=== PATIENT | male | born 1975 | race Caucasian/White ===

== ENCOUNTER 2019-06-27 19:57 | Emergency (ER) | payer MEDICAID ==
--- NOTE | 2019-06-27 20:08 | ERPHSYRPT ---
- History of Present Illness Time Seen by Provider: 06/27/19 20:02 Source: patient Exam Limitations: no limitations Patient Subjective Stated Complaint: shortness of air for the past 2 days. Physician History: for the past 2 days pt has had dizziness, shortness of air and impending faint with some intermittent numbness in his feet especially upon arising from a chair. pt vomited once today without blood. last BM was yesterday & wnl without blood. pt denies chest pain, abdominal pain, chills; admits to diaphoresis for years. Allergies/Adverse Reactions: No Known Drug Allergies Allergy (Unverified 06/27/19 20:17) Home Medications: Lisinopril 10 mg [Zestril 10 MG] 1 tab PO DAILY 06/27/19 [History] - Review of Systems Constitutional: Other (diaphoresis for years), No Chills Respiratory: Dyspnea (for 2 days) Cardiac: No Chest Pain Abdominal/Gastrointestinal: Nausea (today), Vomiting (once today), No Abdominal Pain Genitourinary Symptoms: No Dysuria Neurological: Dizziness, Other (impending faint and some numbness in the feet when arising from a chair for the past 2 days.) All Other Systems: Reviewed and Negative - Nursing Vital Signs Nursing Vital Signs: Initial Vital Signs Temperature 97.9 F 06/27/19 20:04 Pulse Rate 90 06/27/19 20:04 Respiratory Rate 18 06/27/19 20:04 Blood Pressure 134/78 06/27/19 20:04 O2 Sat by Pulse Oximetry 96 06/27/19 20:04 Pain Scale Pain Intensity 0 - Physical Exam General Appearance: alert Eye Exam: PERRL/EOMI Ears, Nose, Throat Exam: abnormal TM (R) (erythematous), pharyngeal erythema Neck Exam: normal inspection, No carotid bruit Respiratory Exam: wheezing (mild) Cardiovascular/Chest Exam: normal heart sounds, edema (+1 ankle edema) Abdominal/Gastrointestinal Exam: soft, normal bowel sounds Extremity Exam: normal range of motion Peripheral Pulses Exam: dorsalis-pedis (R): 1+, dorsalis-pedis (L): 1+ Neurologic Exam: alert, cooperative, normal mood/affect, No motor deficits, No sensory deficit Skin Exam: normal color, warm SpO2 Interpretation: normal - Course Nursing assessment & vital signs reviewed: Yes EKG Interpreted by Me: RATE (79), Sinus Rhythm, NORMAL AXIS - Radiology Exams Chest X-ray Interpretation: Interpreted by me, No Pneumonia - CT Exams Head CT Interpretation: Discussed w/radiologist (mild paranasal sinus dz. 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 Care 06/27/19 20:19 Active EKG-ER Only STAT Care 06/27/19 20:17 Active IV Insertion STAT Care 06/27/19 20:17 Active Pulse Oximetry (ED) STAT Care 06/27/19 20:17 Active CHEST 2 VIEWS (PA AND LAT) Stat Exams 06/27/19 20:19 Taken HEAD WITHOUT CONTRAST [CT] Stat Exams 06/27/19 20:17 Taken BLOOD CULTURE Stat Lab 06/27/19 20:39 Received CBC W DIFF Stat Lab 06/27/19 20:42 Completed CMP Stat Lab 06/27/19 20:42 Completed CULTURE,SPUTUM Stat Lab 06/27/19 21:25 Ordered D-DIMER QUANTITATION Stat Lab 06/27/19 20:42 Completed MAGNESIUM Stat Lab 06/27/19 20:42 Completed NT PRO BNP Stat Lab 06/27/19 20:42 Completed TROPONIN Q3H Lab 06/27/19 20:42 Completed TROPONIN Q3H Lab 06/27/19 23:30 Ordered TROPONIN Q3H Lab 06/28/19 02:30 Ordered TROPONIN Q3H Lab 06/28/19 05:30 Ordered TROPONIN Q3H Lab 06/28/19 08:30 Ordered UA W/RFX UR CULTURE Stat Lab 06/27/19 20:21 Completed Respiratory Therapy Assessment DAILY RT 06/27/19 20:34 Completed Medication Summary Generic Name Dose Route Start Last Admin Trade Name Freq PRN Reason Stop Dose Admin Sodium Chloride 1,000 mls @ 100 mls/hr 06/27/19 20:30 06/27/19 20:31 Sodium Chloride 0.9% 1000 Ml IV 07/27/19 20:29 100 mls/hr .Q10H ROSANNE Administration Discontinued Medications Generic Name Dose Route Start Last Admin Trade Name Freq PRN Reason Stop Dose Admin Albuterol Sulfate 2.5 mg 06/27/19 20:17 06/27/19 20:36 Proventil 2.5 Mg/3 Ml Neb IH 06/27/19 20:18 2.5 mg STAT ONE Administration Albuterol Sulfate Confirm 06/27/19 20:33 Proventil 2.5 Mg/3 Ml Neb Administered 06/27/19 20:34 Dose 2.5 mg IH .STK-MED ONE Ceftriaxone Sodium/Dextrose 1 g in 50 mls @ 100 mls/hr 06/27/19 20:17 21:36 Rocephin 1 Gm-D5w 50 Ml Bag IV 06/27/19 20:46 Infused STAT STA Infusion Azithromycin 500 mg in 250 mls @ 250 mls/hr 06/27/19 20:17 06/27/19 21:14 Zithromax 500 Mg/ 250 Ml Nacl Premix IV 06/27/19 21:16 250 mls/hr STAT STA 250 mls/hr Administration Azithromycin Confirm 06/27/19 20:23 Zithromax 500 Mg/ 250 Ml Nacl Premix Administered 06/27/19 20:24 Dose 500 mg in 250 mls @ ud IV .STK-MED ONE Ceftriaxone Sodium/Dextrose Confirm 06/27/19 20:23 Rocephin 1 Gm-D5w 50 Ml Bag Administered 06/27/19 20:24 Dose 1 g in 50 mls @ ud IV .STK-MED ONE Lab/Rad Data: Laboratory Result Diagrams 06/27/19 20:42 06/27/19 20:42 Laboratory Results 06/27/19 06/27/19 06/27/19 Range/Units 20:42 20:42 20:42 WBC (4.0-10.5) K/mm3 RBC (4.1-5.6) M/mm3 Hgb (12.5-18.0) gm/dl Hct (42-50) % MCV (78-100) fl MCH (26-32) pg MCHC (32-36) g/dl RDW (11.5-14.0) % Plt Count (150-450) K/mm3 MPV (6-9.5) fl Gran % (36.0-66.0) % Eos # (Auto) (0-0.5) Absolute Lymphs (auto) (1.0-4.6) Absolute Monos (auto) (0.0-1.3) Lymphocytes % (24.0-44.0) % Monocytes % (0.0-12.0) % Eosinophils % (0.00-5.0) % Basophils % (0.0-0.4) % Absolute Granulocytes (1.4-6.9) Basophils # (0-0.4) D-Dimer 329 (215-500) ng/mL Sodium 142 (137-145) mmol/L Potassium 4.0 (3.5-5.1) mmol/L Chloride 103 (98-107) mmol/L Carbon Dioxide 25 (22-30) mmol/L Anion Gap 18.5 H (5-15) MEQ/L BUN 12 (9-20) mg/dL Creatinine 0.92 (0.66-1.25) mg/dL Estimated GFR > 60.0 ML/MIN Glucose 97 (74-106) mg/dL Calcium 9.5 (8.4-10.2) mg/dL Magnesium 1.8 (1.6-2.3) mg/dL Total Bilirubin 0.80 (0.2-1.3) mg/dL AST 64 H (17-59) U/L ALT 70 H (0-50) U/L Alkaline Phosphatase 111 (38-126) U/L Troponin I < 0.012 (0.000-0.034) ng/mL NT-Pro-B Natriuret Pep 60.9 (0-450) pg/mL Serum Total Protein 7.8 (6.3-8.2) g/dL Albumin 4.3 (3.5-5.0) g/dL Urine Color (YELLOW) Urine Appearance (CLEAR) Urine pH (5-6) Ur Specific [place] (1.005-1.025) Urine Protein (Negative) Urine Ketones (NEGATIVE) Urine Blood (0-5) Hernán/ul Urine Nitrite (NEGATIVE) Urine Bilirubin (NEGATIVE) Urine Urobilinogen (0-1) mg/dL Ur Leukocyte Esterase (NEGATIVE) Urine WBC (Auto) (0-5) /HPF Urine RBC (Auto) (0-2) /HPF U Epithel Cells (Auto) (FEW) /HPF Urine Bacteria (Auto) (NEGATIVE) /HPF Urine Mucus (Auto) (NEGATIVE) /HPF Urine Culture Reflexed (NO) Urine Glucose (NEGATIVE) mg/dL 06/27/19 06/27/19 Range/Units 20:42 20:21 WBC 14.4 H (4.0-10.5) K/mm3 RBC 5.81 H (4.1-5.6) M/mm3 Hgb 18.6 H (12.5-18.0) gm/dl Hct 53.5 H (42-50) % MCV 92.1 (78-100) fl MCH 32.0 (26-32) pg MCHC 34.8 (32-36) g/dl RDW 16.0 H (11.5-14.0) % Plt Count 302 (150-450) K/mm3 MPV 10.7 H (6-9.5) fl Gran % 52.7 (36.0-66.0) % Eos # (Auto) 0.36 (0-0.5) Absolute Lymphs (auto) 4.82 H (1.0-4.6) Absolute Monos (auto) 1.53 H (0.0-1.3) Lymphocytes % 33.5 (24.0-44.0) % Monocytes % 10.6 (0.0-12.0) % Eosinophils % 2.5 (0.00-5.0) % Basophils % 0.7 (0.0-0.4) % Absolute Granulocytes 7.59 H (1.4-6.9) Basophils # 0.10 (0-0.4) D-Dimer (215-500) ng/mL Sodium (137-145) mmol/L Potassium (3.5-5.1) mmol/L Chloride (98-107) mmol/L Carbon Dioxide (22-30) mmol/L Anion Gap (5-15) MEQ/L BUN (9-20) mg/dL Creatinine (0.66-1.25) mg/dL Estimated GFR ML/MIN Glucose (74-106) mg/dL Calcium (8.4-10.2) mg/dL Magnesium (1.6-2.3) mg/dL Total Bilirubin (0.2-1.3) mg/dL AST (17-59) U/L ALT (0-50) U/L Alkaline Phosphatase (38-126) U/L Troponin I (0.000-0.034) ng/mL NT-Pro-B Natriuret Pep (0-450) pg/mL Serum Total Protein (6.3-8.2) g/dL Albumin (3.5-5.0) g/dL Urine Color YELLOW (YELLOW) Urine Appearance CLEAR (CLEAR) Urine pH 6.0 (5-6) Ur Specific [place] 1.006 (1.005-1.025) Urine Protein NEGATIVE (Negative) Urine Ketones NEGATIVE (NEGATIVE) Urine Blood NEGATIVE (0-5) Hernán/ul Urine Nitrite NEGATIVE (NEGATIVE) Urine Bilirubin NEGATIVE (NEGATIVE) Urine Urobilinogen NEGATIVE (0-1) mg/dL Ur Leukocyte Esterase NEGATIVE (NEGATIVE) Urine WBC (Auto) NONE (0-5) /HPF Urine RBC (Auto) 0-2 (0-2) /HPF U Epithel Cells (Auto) NONE (FEW) /HPF Urine Bacteria (Auto) NONE (NEGATIVE) /HPF Urine Mucus (Auto) SLIGHT (NEGATIVE) /HPF Urine Culture Reflexed NO (NO) Urine Glucose NEGATIVE (NEGATIVE) mg/dL - Departure Departure Disposition: Home Clinical Impression: Sinusitis, Right otitis media, Pharyngitis, Bronchitis, Dizziness Condition: Fair Critical Care Time: No Referrals: MORENO MORRIS NP [Primary Care Provider] - Instructions: Dizziness, Nonvertigo, (DC) Prescriptions: Azithromycin 250 mg [Zithromax 250 MG TABLET] 250 mg PO ZPACK #6 tablet
[2019-06-27] MEDS ORDERED: Sodium Chloride 0.9% 1000 ML 1,000 ML ONE (20:23)
[2019-06-27] MEDS ORDERED: ROCEPHIN 1 Gm-D5w 50 ml Bag** 1 G/50 ML IVPB IV ONE (20:23)
[2019-06-27] MEDS ORDERED: Zithromax 500 MG/ 250 ML NaCl Premix 500 MG/250 ML IVPB IV ONE (20:23)
[2019-06-27] MEDS: Sodium Chloride 0.9% 1000 ML 1,000 ML IV SCH (20:31)
[2019-06-27] MEDS ORDERED: PROVENTIL 2.5 MG/3 ML NEB IH ONE (20:33)
[2019-06-27] MEDS: PROVENTIL 2.5 MG/3 ML NEB IH ONE (20:36)
[2019-06-27 20:48] LABS: BASOPHIL % 0.7 % (0.0-0.4); Eosinophil % 2.5 % (0.00-5.0); Eosinophil (Absolute #) 0.36 (0-0.5); Granulocyte Absolute (ANC) 7.59 (1.4-6.9); Granulocytes % 52.7 % (36.0-66.0); Hematocrit 53.5 % (42-50); Hemoglobin 18.6 gm/dl (12.5-18.0); Lymphocyte (Absolute #) 4.82 (1.0-4.6); Lymphocytes % 33.5 % (24.0-44.0); Mean Cell Volume 92.1 fl (78-100); Mean Corpuscular Hgb Concent. 34.8 g/dl (32-36); Mean Platelet Volume 10.7 fl (6-9.5); Monocyte (Absolute #) 1.53 (0.0-1.3); Monocytes % 10.6 % (0.0-12.0); Platelet Count 302 K/mm3 (150-450); Red Blood Count 5.81 M/mm3 (4.1-5.6); White Blood Count 14.4 K/mm3 (4.0-10.5)
[2019-06-27 20:59] LABS: Appearance CLEAR (CLEAR); Bilirubin NEGATIVE (NEGATIVE); Blood NEGATIVE Ery/ul (0-5); Glucose NEGATIVE (NEGATIVE); Ketones NEGATIVE (NEGATIVE); Leukocyte Esterase NEGATIVE (NEGATIVE); Mucus SLIGHT /HPF (NEGATIVE); Nitrite NEGATIVE (NEGATIVE); Protein,Urine Dip NEGATIVE (Negative); RBC 0-2 /HPF (0-2); Specific Gravity 1.006 (1.005-1.025); Urobilinogen NEGATIVE mg/dL (0-1)
[2019-06-27 21:01] LABS: ALBUMIN 4.3 g/dL (3.5-5.0); ALKALINE PHOSPHATASE 111 U/L (38-126); ANION GAP 18.5 MEQ/L (5-15); BLOOD UREA NITROGEN 12 mg/dL (9-20); CHLORIDE 103 mmol/L (98-107); Calcium 9.5 mg/dL (8.4-10.2); Carbon Dioxide 25 mmol/L (22-30); Creatinine 1 0.92 mg/dL (0.66-1.25); Glucose 97 mg/dL (74-106); MAGNESIUM 1.8 mg/dL (1.6-2.3); NT PRO BNP 60.9 pg/mL (0-450); SGOT/AST 64 U/L (17-59); SGPT/ALT 70 U/L (0-50); SODIUM 142 mmol/L (137-145); Total Protein 7.8 g/dL (6.3-8.2)
[2019-06-27] MEDS: ROCEPHIN 1 Gm-D5w 50 ml Bag** 1 G/50 ML IVPB IV STA (21:07)
[2019-06-27] MEDS: Zithromax 500 MG/ 250 ML NaCl Premix 500 MG/250 ML IVPB IV STA (21:14)
[2019-06-27 22:49] VITALS: BP 133/96; O2SAT 97
[2019-06-27 23:09] VITALS: PULSE 83
[2019-06-28 04:11] LABS: Slide Review 1 YES
--- NOTE | 2019-06-28 07:46 | XRAY ---
Indication: Near syncope. Dyspnea. Feet numbness. Multiple contiguous axial images obtained through the head without contrast. Comparison: None Normal appearing brain parenchyma, ventricles, and bony calvarium. Mild mucosal thickening of both ethmoid sinuses and lesser degree remaining paranasal sinuses without fluid leveling. Mastoid air cells are clear. Impression: Pansinusitis. No acute intracranial abnormalities. CTDI 67.80
--- NOTE | 2019-06-28 07:49 | XRAY ---
Indication: Dyspnea. Diaphoresis. Comparison: None PA/lateral chest hyperinflated with both costophrenic angles not completely included in the [id number]. No focal infiltrate, consolidation, or large effusion. Heart and mediastinal structures within normal limits. Bony thorax intact. Impression: Nonacute hyperinflated limited chest.
== END 2019-06-27 23:04 | disposition home or self-care (01) ==
LOC: ED 19:57
DX: J32.9 Chronic sinusitis, unspecified (principal); H66.91 Otitis media, unspecified, right ear; J02.9 Acute pharyngitis, unspecified; J40 Bronchitis, not specified as acute or chronic; R42 Dizziness and giddiness
CPT/HCPCS: 36000; 36415; 70450; 71046; 80053; 81001; 83735; 83880; 84484; 85025; 85379; 87040; 93005; 93041; 94640; 94760; 96360; 96365; 96368; 99284; J0456; J0696; J7609; A9270-GY

== ENCOUNTER 2019-09-27 11:49 | Emergency (ER) | payer MEDICAID, OTHER ==
[2019-09-27 12:10] VITALS: BP 103/63; PULSE 76; O2SAT 96
[2019-09-27] MEDS ORDERED: TETRACAINE 0.5% STERI-UNIT SOL OP ONE (12:12)
[2019-09-27] MEDS ORDERED: Fluor-I-Strip/Ful-Flo OP ONE ×2 (12:12→12:32)
[2019-09-27] MEDS ORDERED: Eye-Stream Solution ONE (12:13)
[2019-09-27] MEDS ORDERED: Eye-Stream Solution OP ONE (12:33)
[2019-09-27] MEDS ORDERED: Visine OPHTHALMIC 15 ML OP ONE (12:34)
[2019-09-27] MEDS ORDERED: TETRACAINE 0.5% STERI-UNIT SOL OP STA (12:36)
--- NOTE | 2019-09-27 12:39 | ERPHSYRPT ---
- History of Present Illness Time Seen by Provider: 09/27/19 11:55 Source: patient Exam Limitations: no limitations Patient Subjective Stated Complaint: Pt states "I got something in my left eye. It is irritating me. It has been there for about a month. I saw my DrChase and he gave me drops and said it was an infection but I think that is bull." Triage Nursing Assessment: Pt presented alert and oriented X 3, skin pwd Pt ambualtes with an upright steady gait, able to speak in clear full sentences. Pt in no apparet respiratory distress. PT left eye red. Physician History: foreign body sensation left eye times one month Timing/Duration: week(s) (43) Location: left eye Severity: mild Apparent Injury: no Associated Symptoms: burning, foreign body sensation Chemical Exposure: No Trauma: No Welding Arc/Tanning Bed Exposure: No Allergies/Adverse Reactions: No Known Drug Allergies Allergy (Verified 09/27/19 12:10) Home Medications: Lisinopril 10 mg [Zestril 10 MG] 1 tab PO DAILY 06/27/19 [History] Alprazolam 1 mg [Xanax 1 mg] 1 mg PO TID PRN 09/10/19 [History] Benztropine Mesylate 1 mg PO HS 09/10/19 [History] Carvedilol [Coreg] 25 mg PO BID 09/10/19 [History] Celecoxib 100 mg [celeBREX 100 MG] 100 mg PO DAILY 09/10/19 [History] Haloperidol 5 mg [Haldol 5 MG] 5 mg PO BID 09/10/19 [History] Metformin HCl 500 mg [Glucophage 500 MG] 500 mg PO BID 09/10/19 [History] Quetiapine Fumarate 100 mg [Seroquel 100 MG] 100 mg PO HS 09/10/19 [ History] Sertraline HCl [Zoloft] 100 mg PO DAILY 09/10/19 [History] Simvastatin 20Mg [Zocor 20Mg] 20 mg PO DAILY 09/10/19 [History] Hx Tetanus, Diphtheria Vaccination/Date Given: Yes Hx Influenza Vaccination/Date Given: No Hx Pneumococcal Vaccination/Date Given: No Immunizations Up to Date: Yes - Review of Systems Constitutional: No Fever, No Chills Eyes: Foreign Body Sensation Ears, Nose, & Throat: No Symptoms Respiratory: No Cough, No Dyspnea Cardiac: No Chest Pain, No Edema, No Syncope Abdominal/Gastrointestinal: No Abdominal Pain, No Nausea, No Vomiting, No Diarrhea Genitourinary Symptoms: No Dysuria Musculoskeletal: No Back Pain, No Neck Pain Skin: No Rash Neurological: No Dizziness, No Focal Weakness, No Sensory Changes Psychological: No Symptoms Endocrine: No Symptoms All Other Systems: Reviewed and Negative - Past Medical History Pertinent Past Medical History: Yes Neurological History: No Pertinent History ENT History: No Pertinent History Cardiac History: Hypertension Respiratory History: Bronchitis, Pneumonia Endocrine Medical History: Diabetes Type II Musculoskeletal History: Rheumatoid Arthritis GI Medical History: No Pertinent History History: No Pertinent History Psycho-Social History: Bipolar, Depression, Other Male Reproductive Disorders: No Pertinent History Other Medical History: Schizo-affective disorder, bipolar - Past Surgical History Past Surgical History: Yes Neuro Surgical History: No Pertinent History Cardiac: No Pertinent History Respiratory: No Pertinent History Gastrointestinal: No Pertinent History Genitourinary: No Pertinent History Musculoskeletal: Orthopedic Surgery Male Surgical History: No Pertinent History Other Surgical History: Right knee surgery and neck surgery - Social History Smoking Status: Current every day smoker How long have you smoked: years Exposure to second hand smoke: Yes Drug Use: marijuana Patient Lives Alone: Yes - Nursing Vital Signs Nursing Vital Signs: Initial Vital Signs Temperature 98.0 F 09/27/19 12:05 Pulse Rate 76 09/27/19 12:05 Respiratory Rate 20 09/27/19 12:05 Blood Pressure 103/63 09/27/19 12:05 O2 Sat by Pulse Oximetry 96 09/27/19 12:05 Pain Scale Pain Intensity 5 - Physical Exam General Appearance: mild distress Vision Acuity Degree Evaluation Phase: Uncorrected Vision Acuity Right Eye: 20/50 Vision Acuity Left Eye: 20/50 Eye Exam: left eye: conjunctival inflammation, corneal abrasion, eyelid inflammation, bilateral eye: normal inspection, PERRL, EOMI Ears, Nose, Throat Exam: normal ENT inspection Neck Exam: normal inspection Respiratory Exam: normal breath sounds Cardiovascular Exam: regular rate/rhythm Extremity Exam: normal inspection Neurologic: 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 Skin Exam: normal color, warm, dry SpO2: 96 Ordered Tests: Medication Summary Discontinued Medications Generic Name Dose Route Start Last Admin Trade Name Freq PRN Reason Stop Dose Admin Eye Irrigation Solution Confirm 09/27/19 12:13 Eye-Stream Solution Administered 09/27/19 12:14 Dose 30 ml .ROUTE .STK-MED ONE Eye Irrigation Solution 15 ml 09/27/19 12:33 Eye-Stream Solution OP 09/27/19 12:34 STAT ONE Fluorescein Sodium Confirm 09/27/19 12:12 [id number]/Ful-Wyatt Administered 09/27/19 12:13 Dose 1 mg OP .STK-MED ONE Fluorescein Sodium 1 mg 09/27/19 12:32 [id number]/Ful-Wyatt OP 09/27/19 12:33 STAT ONE Tetracaine HCl Confirm 09/27/19 12:12 Tetracaine 0.5% Steri-Unit La Administered 09/27/19 12:13 Dose 4 ml OP .STK-MED ONE - Progress Progress: unchanged - Departure Departure Disposition: Home Clinical Impression: Corneal abrasion, left Condition: Stable Critical Care Time: No Referrals: MORENO MORRIS NP [Primary Care Provider] - Instructions: Corneal Abrasion (DC) Additional Instructions: corneal abrasion Prescriptions: Tobramycin/Dexamethasone [Tobradex Eye Drops] 10 ml OP Q4H #2 drops.susp
== END 2019-09-27 12:52 | disposition home or self-care (01) ==
LOC: ED 11:49
DX: T15.02XA Foreign body in cornea, left eye, initial encounter (principal); X58.XXXA Exposure to other specified factors, initial encounter; Y93.9 Activity, unspecified; Y92.9 Unspecified place or not applicable; E11.9 Type 2 diabetes mellitus without complications; Z79.4 Long term (current) use of insulin; I10 Essential (primary) hypertension; M06.9 Rheumatoid arthritis, unspecified
CPT/HCPCS: 99283; A9270-GY

== ENCOUNTER 2019-10-03 15:48 | Emergency (ER) | payer OTHER ==
[2019-10-03] MEDS ORDERED: Sodium Chloride 0.9% 1000 ML 1,000 ML IV STA (16:17)
--- NOTE | 2019-10-03 16:17 | ERPHSYRPT ---
- History of Present Illness Time Seen by Provider: 10/03/19 15:59 Source: patient Exam Limitations: no limitations Patient Subjective Stated Complaint: pt here for syncopal episode at home early this morning, he states for over a month now he has been getting dizzy spells, [facility] Triage Nursing Assessment: pt alert, resp easy, skin w/d/p. chest wheezes, abd soft,large and distened which is normal for him, pt co pain to back from the fall today and a headache, edema to lower legs Physician History: pt. here for a syncopal episode this am followed by a fall on his right side and hitting his head with ? LOC, denies nausea/vomiting/seizure like activity, not witnessed - pt. reports that he ahs chronic medical problems like tingling of arms and legs, dizziness, weakness x 2 mo - denies headache/chest pain/sob Witnessed: unwitnessed Prior Episodes: single episode today Timing/Duration: today, improved Precipitating Factors: none Context: activity Loss of Consciousness: brief (seconds) Charcter of event(s): almost passed out Allergies/Adverse Reactions: No Known Drug Allergies Allergy (Verified 10/03/19 16:16) Home Medications: Lisinopril 10 mg [Zestril 10 MG] 1 tab PO DAILY 06/27/19 [History] Alprazolam 1 mg [Xanax 1 mg] 1 mg PO TID PRN 09/10/19 [History] Benztropine Mesylate 1 mg PO HS 09/10/19 [History] Carvedilol [Coreg] 25 mg PO BID 09/10/19 [History] Celecoxib 100 mg [celeBREX 100 MG] 100 mg PO DAILY 09/10/19 [History] Haloperidol 5 mg [Haldol 5 MG] 5 mg PO BID 09/10/19 [History] Metformin HCl 500 mg [Glucophage 500 MG] 500 mg PO BID 09/10/19 [History] Quetiapine Fumarate 100 mg [Seroquel 100 MG] 100 mg PO HS 09/10/19 [ History] Sertraline HCl [Zoloft] 100 mg PO DAILY 09/10/19 [History] Simvastatin 20Mg [Zocor 20Mg] 20 mg PO DAILY 09/10/19 [History] Hx Tetanus, Diphtheria Vaccination/Date Given: Yes Hx Influenza Vaccination/Date Given: No Hx Pneumococcal Vaccination/Date Given: No Immunizations Up to Date: Yes - Past Medical History Pertinent Past Medical History: Yes Neurological History: No Pertinent History ENT History: No Pertinent History Cardiac History: Hypertension Respiratory History: Bronchitis, Pneumonia Endocrine Medical History: Diabetes Type II Musculoskeletal History: Rheumatoid Arthritis GI Medical History: No Pertinent History History: No Pertinent History Psycho-Social History: Bipolar, Depression, Other Male Reproductive Disorders: No Pertinent History Other Medical History: Schizo-affective disorder, bipolar - Past Surgical History Past Surgical History: Yes Neuro Surgical History: No Pertinent History Cardiac: No Pertinent History Respiratory: No Pertinent History Gastrointestinal: No Pertinent History Genitourinary: No Pertinent History Musculoskeletal: Orthopedic Surgery Male Surgical History: No Pertinent History Other Surgical History: Right knee surgery and neck surgery - Social History Smoking Status: Current every day smoker How long have you smoked: years Exposure to second hand smoke: Yes Drug Use: marijuana Patient Lives Alone: Yes - Review of Systems Constitutional: No Fever, No Chills Eyes: No Symptoms Ears, Nose, & Throat: No Symptoms Respiratory: No Cough, No Dyspnea Cardiac: No Chest Pain, No Edema, No Syncope Abdominal/Gastrointestinal: No Abdominal Pain, No Nausea, No Vomiting, No Diarrhea Genitourinary Symptoms: No Dysuria Musculoskeletal: No Back Pain, No Neck Pain Skin: No Rash Neurological: Dizziness, No Focal Weakness, No Sensory Changes Psychological: No Symptoms Endocrine: No Symptoms Hematologic/Lymphatic: No Symptoms Immunological/Allergic: No Symptoms All Other Systems: Reviewed and Negative Physical Exam - Nursing Vital Signs Nursing Vital Signs: Initial Vital Signs Temperature 97.9 F 10/03/19 16:04 Pulse Rate 78 10/03/19 16:04 Respiratory Rate 18 10/03/19 16:04 Blood Pressure 130/83 10/03/19 16:04 O2 Sat by Pulse Oximetry 96 10/03/19 16:04 Pain Scale Pain Intensity 0 - [place] Coma Scale Best Eye Response (Janet): (4) open spontaneously Best Verbal Response (Janet): (5) oriented Best Motor Response (Janet): (6) obeys commands Janet Total: 15 - Physical Exam General Appearance: no apparent distress Eye Exam: bilateral eye: normal inspection, PERRL, EOMI Ears, Nose, Throat Exam: normal ENT inspection Neck Exam: normal inspection, non-tender, supple, full range of motion Respiratory: normal breath sounds, lungs clear, airway intact, No chest tenderness, No respiratory distress Cardiovascular: regular rate/rhythm, normal heart sounds, normal peripheral pulses Gastrointestinal: soft, normal bowel sounds Rectal Exam: deferred Back Exam: normal inspection, normal range of motion Extremity Exam: normal inspection, normal range of motion Peripheral Pulses: carotid (R): 4+, carotid (L): 4+, femoral (R): 4+, femoral (L ): 4+, dorsalis-pedis (R): 4+, dorsalis-pedis (L): 4+ 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, 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, 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 Exam: normal hearing, normal speech, PERRL Coordination/Gait: normal finger to nose, normal gait, normal cerebellar function, negative Romberg's sign Motor/Sensory: no motor deficit, no sensory deficit, no pronator drift Skin Exam: normal color, warm, dry SpO2 Interpretation: normal SpO2: 96 O2 Delivery: Room Air Ordered Tests: Active Orders 24 hr Category Date Time Status Accucheck STAT Care 10/03/19 16:17 Active IV Insertion STAT Care 10/03/19 16:17 Active Orthostatic Vital Signs STAT Care 10/03/19 16:17 Active HEAD WITHOUT CONTRAST [CT] Stat Exams 10/03/19 16:18 Completed LUMBAR LIMITED (2 OR 3 VIEWS) Stat Exams 10/03/19 16:48 Completed CBC W DIFF Stat Lab 10/03/19 16:04 Completed CMP Stat Lab 10/03/19 16:04 Completed Manual Differential NC Stat Lab 10/03/19 16:04 Completed TROPONIN Q3H Lab 10/03/19 16:04 Completed Urine Triage Profile Stat Lab 10/03/19 16:04 Completed Medication Summary Discontinued Medications Generic Name Dose Route Start Last Admin Trade Name Freq PRN Reason Stop Dose Admin Sodium Chloride 1,000 mls @ 999 mls/hr 10/03/19 16:17 10/03/19 17:54 Sodium Chloride 0.9% 1000 Ml IV 10/03/19 17:17 Infused .Q1H1M STA Infusion Sodium Chloride Confirm 10/03/19 16:46 Sodium Chloride 0.9% 1000 Ml Administered 10/03/19 16:47 Dose 1,000 mls @ ud .ROUTE .STK-MED ONE Ketorolac Tromethamine 30 mg 10/03/19 16:21 10/03/19 16:49 Toradol 30 Mg Injection IV 10/03/19 16:22 30 mg STAT ONE Administration Ketorolac Tromethamine Confirm 10/03/19 16:46 Toradol 30 Mg Injection Administered 10/03/19 16:47 Dose 30 mg .ROUTE .STK-MED ONE Lab/Rad Data: Laboratory Result Diagrams 10/03/19 16:04 10/03/19 16:04 Laboratory Results 10/03/19 10/03/19 10/03/19 Range/Units 16:04 16:04 16:04 WBC (4.0-10.5) K/mm3 RBC (4.1-5.6) M/mm3 Hgb (12.5-18.0) gm/dl Hct (42-50) % MCV (78-100) fl MCH (26-32) pg MCHC (32-36) g/dl RDW (11.5-14.0) % Plt Count (150-450) K/mm3 MPV (6-9.5) fl Sodium 142 (137-145) mmol/L Potassium 4.1 (3.5-5.1) mmol/L Chloride 106 (98-107) mmol/L Carbon Dioxide 26 (22-30) mmol/L Anion Gap 13.8 (5-15) MEQ/L BUN 14 (9-20) mg/dL Creatinine 0.67 (0.66-1.25) mg/dL Estimated GFR > 60.0 ML/MIN Glucose 86 (74-106) mg/dL Calcium 9.3 (8.4-10.2) mg/dL Total Bilirubin 0.40 (0.2-1.3) mg/dL AST 56 (17-59) U/L ALT 88 H (0-50) U/L Alkaline Phosphatase 95 (38-126) U/L Troponin I < 0.012 (0.000-0.034) ng/mL Serum Total Protein 7.6 (6.3-8.2) g/dL Albumin 4.2 (3.5-5.0) g/dL Urine Opiates Level NEGATIVE (NEGATIVE) Ur Methadone NEGATIVE (NEGATIVE) Urine Barbiturates NEGATIVE (NEGATIVE) Ur Phencyclidine (PCP) NEGATIVE (NEGATIVE) Urine Amphetamine NEGATIVE (NEGATIVE) U Benzodiazepine Level POSITIVE (NEGATIVE) Urine Cocaine NEGATIVE (NEGATIVE) Urine Marijuana (THC) POSITIVE (NEGATIVE) 10/03/19 Range/Units 16:04 WBC 13.9 H (4.0-10.5) K/mm3 RBC 5.10 (4.1-5.6) M/mm3 Hgb 16.2 (12.5-18.0) gm/dl Hct 47.4 (42-50) % MCV 92.9 (78-100) fl MCH 31.8 (26-32) pg MCHC 34.2 (32-36) g/dl RDW 13.9 (11.5-14.0) % Plt Count 233 (150-450) K/mm3 MPV 11.4 H (6-9.5) fl Sodium (137-145) mmol/L Potassium (3.5-5.1) mmol/L Chloride (98-107) mmol/L Carbon Dioxide (22-30) mmol/L Anion Gap (5-15) MEQ/L BUN (9-20) mg/dL Creatinine (0.66-1.25) mg/dL Estimated GFR ML/MIN Glucose (74-106) mg/dL Calcium (8.4-10.2) mg/dL Total Bilirubin (0.2-1.3) mg/dL AST (17-59) U/L ALT (0-50) U/L Alkaline Phosphatase (38-126) U/L Troponin I (0.000-0.034) ng/mL Serum Total Protein (6.3-8.2) g/dL Albumin (3.5-5.0) g/dL Urine Opiates Level (NEGATIVE) Ur Methadone (NEGATIVE) Urine Barbiturates (NEGATIVE) Ur Phencyclidine (PCP) (NEGATIVE) Urine Amphetamine (NEGATIVE) U Benzodiazepine Level (NEGATIVE) Urine Cocaine (NEGATIVE) Urine Marijuana (THC) (NEGATIVE) - Progress Progress: improved Progress Note: 10/03/19 20:54 pt. seen and examined IVF given CBC showed wbc ct 13.9- no comparison/source of infection/symptoms cmp, torpomnins WNL Lumbar spine XR and Ct head - WNL UDS + marijuana and benzos discussed with pt- he wants to go home as all of his other symptoms are chronis , states he feels better after IVF - Departure Departure Disposition: Home Clinical Impression: Syncope, Dizziness and giddiness, Low back pain Condition: Stable Critical Care Time: No Referrals: MORENO MORRIS, LOGISTICS OFFICER [Primary Care Provider] - Instructions: Syncope (Fainting) Additional Instructions: Discharge/Care Plan MIRIAM HUERTAS was seen on 10/03/19 in the Emergency Room. The patient was counseled regarding Diagnosis,Lab results, Imaging studies, need for follow up and when to return to the Emergency Room. Prescriptions given: Discharge Note I have spoken with the patient and/or caregivers. I have explained the patient' s condition, diagnosis and treatment plan based on the information available to me at this time. I have answered the patient's and/or caregiver's questions and addressed any concerns. The patient and/or caregivers have as good understanding of the patient's diagnosis, condition and treatment plan as can be expected at this point. The vital signs have been stable. The patient's condition is stable and appropriate for discharge from the emergency department. The patient will pursue further outpatient evaluation with the primary care physician or other designated or consulting physician as outlined in the discharge instructions. The patient and/or caregivers are agreeable to this plan of care and follow-up instructions have been explained in detail. The patient and/or caregivers have received these instruction. The patient/and or caregivers are aware that any significant change in condition or worsening of symptoms should prompt an immediate return to this or the closest emergency department or call 911.
[2019-10-03] MEDS ORDERED: TORAdol 30 mg Injection IV ONE (16:21)
[2019-10-03] MEDS ORDERED: TORAdol 30 mg Injection ONE (16:46)
[2019-10-03] MEDS ORDERED: Sodium Chloride 0.9% 1000 ML 1,000 ML ONE (16:46)
--- NOTE | 2019-10-03 16:50 | XRAY ---
Indication: Dizziness and syncope. Right head injury following fall. Multiple contiguous axial images obtained through the head without contrast. Comparison: June 27, 2019. Again normal appearing brain parenchyma, ventricles, and bony calvarium. Minimal mucosal thickening right maxillary and left sphenoid sinuses. Mastoid air cells are clear. Impression: Minimal paranasal sinus disease. No new or acute intracranial abnormalities. CTDI 43.80
--- NOTE | 2019-10-03 16:55 | XRAY ---
Indication: Pain following fall. Comparison: None 3 views of the lumbar spine demonstrates 5 lumbar vertebral segments in normal alignment with vertebral body heights/disc spaces maintained and minimal aortic calcifications. No other bony, articular, or soft tissue abnormalities.
[2019-10-03 17:19] LABS: Hematocrit 47.4 % (42-50); Hemoglobin 16.2 gm/dl (12.5-18.0); Mean Cell Volume 92.9 fl (78-100); Mean Corpuscular Hemoglobin 31.8 pg (26-32); Mean Corpuscular Hgb Concent. 34.2 g/dl (32-36); Mean Platelet Volume 11.4 fl (6-9.5); Platelet Count 233 K/mm3 (150-450); Red Cell Distribution Width 13.9 % (11.5-14.0); White Blood Count 13.9 K/mm3 (4.0-10.5)
[2019-10-03 17:34] LABS: ALBUMIN 4.2 g/dL (3.5-5.0); ALKALINE PHOSPHATASE 95 U/L (38-126); ANION GAP 13.8 MEQ/L (5-15); BLOOD UREA NITROGEN 14 mg/dL (9-20); CHLORIDE 106 mmol/L (98-107); Calcium 9.3 mg/dL (8.4-10.2); Carbon Dioxide 26 mmol/L (22-30); Creatinine 1 0.67 mg/dL (0.66-1.25); Glucose 86 mg/dL (74-106); Potassium 4.1 mmol/L (3.5-5.1); SGOT/AST 56 U/L (17-59); SGPT/ALT 88 U/L (0-50); SODIUM 142 mmol/L (137-145); Total Protein 7.6 g/dL (6.3-8.2)
[2019-10-03 17:44] LABS: Amphetamine,Urine NEGATIVE (NEGATIVE); Barbiturate,Urine NEGATIVE (NEGATIVE); Benzodiazepine,Urine POSITIVE (NEGATIVE); Methadone,Urine NEGATIVE (NEGATIVE); Opiate,Urine NEGATIVE (NEGATIVE); PCP,Urine NEGATIVE (NEGATIVE); THC,Urine POSITIVE (NEGATIVE)
[2019-10-03 17:45] LABS: Cocaine,Urine NEGATIVE (NEGATIVE)
[2019-10-03 18:38] VITALS: BP 114/76; PULSE 69
[2019-10-03 20:55] VITALS: O2SAT 96
[2019-10-04 05:46] LABS: Basophil 1 % (0.0-1.0); Lymphocytes 32 % (24-44); Monocyte 20 % (0.0-12.0); Neutrophils 47 % (36.-66.); Platelet Estimate NORMAL (NORMAL); Total Cells Counted 100
== END 2019-10-03 18:46 | disposition home or self-care (01) ==
LOC: ED 15:48
DX: R55 Syncope and collapse (principal); R42 Dizziness and giddiness; M54.2 Cervicalgia
CPT/HCPCS: 36000; 36415; 70450; 72100; 80053; 80307; 82962; 84484; 85025; 96360; 96374; 99284; J1885

== ENCOUNTER 2019-10-05 17:46 | Emergency (ER) | payer OTHER ==
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
[2019-10-05 18:28] LABS: Hematocrit 46.1 % (42-50); Hemoglobin 15.5 gm/dl (12.5-18.0); Mean Cell Volume 95.4 fl (78-100); Mean Corpuscular Hemoglobin 32.1 pg (26-32); Mean Corpuscular Hgb Concent. 33.6 g/dl (32-36); Mean Platelet Volume 10.6 fl (6-9.5); Platelet Count 249 K/mm3 (150-450); Red Blood Count 4.83 M/mm3 (4.1-5.6); Red Cell Distribution Width 13.7 % (11.5-14.0)
[2019-10-05 18:42] LABS: ALBUMIN 4.1 g/dL (3.5-5.0); ALKALINE PHOSPHATASE 91 U/L (38-126); ANION GAP 10.9 MEQ/L (5-15); BLOOD UREA NITROGEN 11 mg/dL (9-20); CHLORIDE 105 mmol/L (98-107); Calcium 9.5 mg/dL (8.4-10.2); Carbon Dioxide 32 mmol/L (22-30); Creatinine 1 0.84 mg/dL (0.66-1.25); Glucose 94 mg/dL (74-106); Potassium 4.7 mmol/L (3.5-5.1); SGOT/AST 55 U/L (17-59); SGPT/ALT 93 U/L (0-50); SODIUM 144 mmol/L (137-145); Total Protein 7.5 g/dL (6.3-8.2)
[2019-10-05 18:43] LABS: ACETAMINOPHEN < 10 ug/ml (10-30); ETHYL ALCOHOL < 10 mg/dL (0-10); SALICYLATE < 1.0 mg/dL (2-20)
[2019-10-05 19:37] VITALS: O2SAT 98
[2019-10-05 19:57] LABS: Appearance CLEAR (CLEAR); Bilirubin NEGATIVE (NEGATIVE); Blood NEGATIVE Ery/ul (0-5); Glucose NEGATIVE (NEGATIVE); Hyaline Casts 0-2 /LPF (0-2); Ketones NEGATIVE (NEGATIVE); Leukocyte Esterase NEGATIVE (NEGATIVE); Mucus SLIGHT /HPF (NEGATIVE); Nitrite NEGATIVE (NEGATIVE); Protein,Urine Dip NEGATIVE (Negative); Urobilinogen 4 mg/dL (0-1)
[2019-10-05 20:06] LABS: Amphetamine,Urine NEGATIVE (NEGATIVE); Barbiturate,Urine NEGATIVE (NEGATIVE); Benzodiazepine,Urine POSITIVE (NEGATIVE); Cocaine,Urine NEGATIVE (NEGATIVE); Methadone,Urine NEGATIVE (NEGATIVE); Opiate,Urine NEGATIVE (NEGATIVE); PCP,Urine NEGATIVE (NEGATIVE); THC,Urine POSITIVE (NEGATIVE)
[2019-10-05 21:32] VITALS: BP 132/81; PULSE 77
[2019-10-06 01:33] LABS: Basophil 2 % (0.0-1.0); Lymphocytes 32 % (24-44); Monocyte 6 % (0.0-12.0); Neutrophils 60 % (36.-66.); Total Cells Counted 100
[2019-10-06 01:34] LABS: Platelet Estimate NORMAL (NORMAL); Toxic Granulation RARE
== END 2019-10-05 22:45 | disposition short-term general hospital (02) ==
LOC: ED 17:46
DX: R45.850 Homicidal ideations (principal)
CPT/HCPCS: 36415; 80053; 80307; 81001; 85025; 93005; 99285; G0481; 90791; Q3014; G0480

== ENCOUNTER 2019-11-17 16:54 | Emergency (ER) | payer OTHER ==
--- NOTE | 2019-11-17 17:13 | ERPHSYRPT ---
- History of Present Illness Time Seen by Provider: 11/17/19 17:13 Allergies/Adverse Reactions: pregabalin [From Lyrica] Allergy (Verified 10/05/19 17:51) Home Medications: Lisinopril 10 mg [Zestril 10 MG] 1 tab PO DAILY 06/27/19 [History] Alprazolam 1 mg [Xanax 1 mg] 1 mg PO TID PRN 09/10/19 [History] Benztropine Mesylate 1 mg PO HS 09/10/19 [History] Carvedilol [Coreg] 25 mg PO BID 09/10/19 [History] Celecoxib 100 mg [celeBREX 100 MG] 100 mg PO DAILY 09/10/19 [History] Haloperidol 5 mg [Haldol 5 MG] 5 mg PO BID 09/10/19 [History] Metformin HCl 500 mg [Glucophage 500 MG] 500 mg PO BID 09/10/19 [History] Quetiapine Fumarate 100 mg [Seroquel 100 MG] 100 mg PO HS 09/10/19 [ History] Sertraline HCl [Zoloft] 100 mg PO DAILY 09/10/19 [History] Simvastatin 20Mg [Zocor 20Mg] 20 mg PO DAILY 09/10/19 [History] Hx Tetanus, Diphtheria Vaccination/Date Given: Yes Hx Influenza Vaccination/Date Given: No Hx Pneumococcal Vaccination/Date Given: No - Past Medical History Pertinent Past Medical History: Yes Neurological History: No Pertinent History ENT History: No Pertinent History Cardiac History: Hypertension Respiratory History: Bronchitis, Pneumonia Endocrine Medical History: Diabetes Type II Musculoskeletal History: Rheumatoid Arthritis GI Medical History: No Pertinent History History: No Pertinent History Psycho-Social History: Bipolar, Depression, Other Male Reproductive Disorders: No Pertinent History Other Medical History: Schizo-affective disorder, bipolar - Past Surgical History Past Surgical History: Yes Neuro Surgical History: No Pertinent History Cardiac: No Pertinent History Respiratory: No Pertinent History Gastrointestinal: No Pertinent History Genitourinary: No Pertinent History Musculoskeletal: Orthopedic Surgery Male Surgical History: No Pertinent History Other Surgical History: Right knee surgery and neck surgery - Social History Smoking Status: Current every day smoker How long have you smoked: years Exposure to second hand smoke: Yes Drug Use: marijuana Patient Lives Alone: Yes - Departure Referrals: DOCTOR,NO FAMILY [Primary Care Provider] -
[2019-11-17 17:14] VITALS: BP 117/77; PULSE 88; O2SAT 96
== END 2019-11-17 18:05 | disposition left against medical advice (07) ==
LOC: ED 16:54
DX: H02.846 Edema of left eye, unspecified eyelid (principal)
CPT/HCPCS: 99283; G0463

== ENCOUNTER 2019-11-26 14:05 | Emergency (ER) | payer OTHER ==
[2019-11-26 14:23] VITALS: BP 167/111; PULSE 120; O2SAT 96
[2019-11-26] MEDS ORDERED: Sodium Chloride 0.9% 1000 ML 1,000 ML IV STA (14:28)
--- NOTE | 2019-11-26 14:33 | ERPHSYRPT ---
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 patient reports that he was walking and all of sudden everything blacked out leading to fall and passing out. he woke up with no confusion , walked to the fire department and is brought in here for eval. he denies any seizure like activity, no chest pain /palpitations or SOB before or after the episode. no tongue bite/loss of bowel/ bladder control. no obvious injury. patient reports having similar episodes multiple times in past but has not followed up with neurology/cardiology. 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 he denies any focal numbness/tingling and weakness. patient is not confused at all and does not want to have any workup like blood draw /imaging done . he says that he will see his doctor tomorrow. Timing/Duration: today Severity: moderate Character of Deficits: none Baseline/Normal Cognition: alert 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 Current Cognition: alert 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 Baseline Gait: walks w/o assistance Associated Symptoms: denies symptoms Allergies/Adverse Reactions: pregabalin [From Lyrica] Allergy (Verified 11/26/19 14:23) Home Medications: Lisinopril 10 mg [Zestril 10 MG] 1 tab PO DAILY 06/27/19 [History] Benztropine Mesylate 1 mg PO HS 09/10/19 [History] Carvedilol [Coreg] 25 mg PO BID 09/10/19 [History] Celecoxib 100 mg [celeBREX 100 MG] 100 mg PO DAILY 09/10/19 [History] Haloperidol 5 mg [Haldol 5 MG] 5 mg PO BID 09/10/19 [History] Metformin HCl 500 mg [Glucophage 500 MG] 500 mg PO BID 09/10/19 [History] Quetiapine Fumarate 100 mg [Seroquel 100 MG] 100 mg PO HS 09/10/19 [ History] Sertraline HCl [Zoloft] 100 mg PO DAILY 09/10/19 [History] Budesonide/Formoterol Fumarate [Symbicort 80-4.5 Mcg Inhaler] 1 puff IH BID [History] Fluticasone Propionate [Flovent Diskus] 1 spray IH BID 11/26/19 [History] Simvastatin 20Mg [Zocor 20Mg] 1 tab PO DAILY 11/26/19 [History] Vilazodone HCl [Viibryd] 20 mg PO DAILY 11/26/19 [History] Hx Tetanus, Diphtheria Vaccination/Date Given: Yes Hx Influenza Vaccination/Date Given: No Hx Pneumococcal Vaccination/Date Given: No - Review of Systems Constitutional: No Symptoms Eyes: No Symptoms Ears, Nose, & Throat: No Symptoms Respiratory: Cough, Wheezing Cardiac: No Symptoms Abdominal/Gastrointestinal: No Symptoms Genitourinary Symptoms: No Symptoms Musculoskeletal: No Symptoms Skin: No Symptoms Neurological: No Symptoms Psychological: No Symptoms Endocrine: No Symptoms Hematologic/Lymphatic: No Symptoms Immunological/Allergic: No Symptoms - Past Medical History Pertinent Past Medical History: Yes Neurological History: No Pertinent History ENT History: No Pertinent History Cardiac History: Hypertension Respiratory History: Bronchitis, Pneumonia Endocrine Medical History: Diabetes Type II Musculoskeletal History: Rheumatoid Arthritis GI Medical History: No Pertinent History History: No Pertinent History Psycho-Social History: Bipolar, Depression, Other Male Reproductive Disorders: No Pertinent History Other Medical History: Schizo-affective disorder, bipolar - Past Surgical History Past Surgical History: Yes Neuro Surgical History: No Pertinent History Cardiac: No Pertinent History Respiratory: No Pertinent History Gastrointestinal: No Pertinent History Genitourinary: No Pertinent History Musculoskeletal: Orthopedic Surgery Male Surgical History: No Pertinent History Other Surgical History: Right knee surgery and neck surgery - Social History Smoking Status: Current every day smoker How long have you smoked: years Exposure to second hand smoke: Yes Drug Use: marijuana Patient Lives Alone: Yes - Nursing Vital Signs Nursing Vital Signs: Initial Vital Signs Temperature 98.1 F 11/26/19 14:15 Pulse Rate 120 H 11/26/19 14:15 Blood Pressure 167/111 11/26/19 14:15 O2 Sat by Pulse Oximetry 96 11/26/19 14:15 Pain Scale Pain Intensity 0 - [place] Coma Scale Best Eye Response ([place]): (4) open spontaneously Best Verbal Response ([place]): (5) oriented Best Motor Response ([place]): (6) obeys commands [place] Total: 15 - Physical Exam General Appearance: no apparent distress Eye Exam: bilateral eye: normal inspection, PERRL, EOMI Ears, Nose, Throat Exam: normal ENT inspection, TMs normal, pharynx normal, moist mucous membranes Neck Exam: normal inspection, non-tender, supple, full range of motion, No meningismus Respiratory: normal breath sounds, lungs clear, airway intact, No chest tenderness, No respiratory distress Cardiovascular: tachycardia (regular) Gastrointestinal: soft, normal bowel sounds, No tenderness, No distention, No mass Back Exam: normal inspection, normal range of motion Extremity Exam: normal inspection, normal range of motion 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, 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, 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 Exam: normal hearing, normal speech, PERRL Coordination/Gait: normal finger to nose, normal gait, normal cerebellar function Motor/Sensory: no motor deficit, no sensory deficit, no pronator drift DTR: bicep (R): 2+, bicep (L): 2+, knee (R): 2+, knee (L): 2+ Skin Exam: normal color, warm SpO2 Interpretation: normal SpO2: 96 O2 Delivery: Room Air - Course Nursing assessment & vital signs reviewed: Yes EKG Interpreted by Me: RATE (112), Right [place] Deviation, Q-wave (ant leads, no acute changes when compared with old ), Non-specific ST Changes Ordered Tests: Active Orders 24 hr Category Date Time Status Accucheck STAT Care 11/26/19 14:28 Active EKG-ER Only STAT Care 11/26/19 14:28 Active IV Insertion STAT Care 11/26/19 14:28 Active Orthostatic Vital Signs STAT Care 11/26/19 14:28 Active CHEST 1 VIEW (PORTABLE) Stat Exams 11/26/19 14:29 Ordered HEAD WITHOUT CONTRAST [CT] Stat Exams 11/26/19 14:29 Ordered CBC W DIFF Stat Lab 11/26/19 14:15 Completed CMP Stat Lab 11/26/19 14:15 Completed ETHYL ALCOHOL Stat Lab 11/26/19 14:15 Completed Lactic Acid Stat Lab 11/26/19 14:28 Results Manual Differential NC Stat Lab 11/26/19 14:15 Completed TROPONIN Q3H Lab 11/26/19 14:30 Ordered TROPONIN Q3H Lab 11/26/19 17:30 Ordered TROPONIN Q3H Lab 11/26/19 20:30 Ordered TROPONIN Q3H Lab 11/26/19 23:30 Ordered UA W/RFX UR CULTURE Stat Lab 11/26/19 14:29 Ordered Urine Triage Profile Stat Lab 11/26/19 14:29 Ordered Medication Summary Discontinued Medications Generic Name Dose Route Start Last Admin Trade Name Freq PRN Reason Stop Dose Admin Sodium Chloride 1,000 mls @ 999 mls/hr 11/26/19 14:28 Sodium Chloride 0.9% 1000 Ml IV 11/26/19 15:28 .Q1H1M STA Lab/Rad Data: Laboratory Result Diagrams 11/26/19 14:15 11/26/19 14:15 Laboratory Results 11/26/19 11/26/19 11/26/19 Range/Units 14:28 14:15 14:15 WBC 19.8 H (4.0-10.5) K/mm3 RBC 5.38 (4.1-5.6) M/mm3 Hgb 17.6 (12.5-18.0) gm/dl Hct 52.0 H (42-50) % MCV 96.7 (78-100) fl MCH 32.7 H (26-32) pg MCHC 33.8 (32-36) g/dl RDW 13.8 (11.5-14.0) % Plt Count 278 (150-450) K/mm3 MPV 10.3 (7.5-11.0) fl Sodium 141 (137-145) mmol/L Potassium 4.3 (3.5-5.1) mmol/L Chloride 99 (98-107) mmol/L Carbon Dioxide 34 H (22-30) mmol/L Anion Gap 12.3 (5-15) MEQ/L BUN 16 (9-20) mg/dL Creatinine 0.84 (0.66-1.25) mg/dL Estimated GFR > 60.0 ML/MIN Glucose 114 H (74-106) mg/dL Lactic Acid 2.3 H (0.4-2.0) Calcium 8.8 (8.4-10.2) mg/dL Total Bilirubin 0.60 (0.2-1.3) mg/dL AST 41 (17-59) U/L ALT 47 (0-50) U/L Alkaline Phosphatase 115 (38-126) U/L Serum Total Protein 7.9 (6.3-8.2) g/dL Albumin 4.2 (3.5-5.0) g/dL Ethyl Alcohol < 10 (0-10) mg/dL - Departure Referrals: DOCTOR,NO FAMILY [NON-STAFF PHY W/O PRIVILEGES] -
[2019-11-26 14:37] LABS: Hemoglobin 17.6 gm/dl (12.5-18.0); Mean Cell Volume 96.7 fl (78-100); Mean Corpuscular Hemoglobin 32.7 pg (26-32); Mean Corpuscular Hgb Concent. 33.8 g/dl (32-36); Mean Platelet Volume 10.3 fl (7.5-11.0); Platelet Count 278 K/mm3 (150-450); Red Blood Count 5.38 M/mm3 (4.1-5.6); Red Cell Distribution Width 13.8 % (11.5-14.0); White Blood Count 19.8 K/mm3 (4.0-10.5)
[2019-11-26 14:43] LABS: ALBUMIN 4.2 g/dL (3.5-5.0); ALKALINE PHOSPHATASE 115 U/L (38-126); ANION GAP 12.3 MEQ/L (5-15); BLOOD UREA NITROGEN 16 mg/dL (9-20); CHLORIDE 99 mmol/L (98-107); Calcium 8.8 mg/dL (8.4-10.2); Carbon Dioxide 34 mmol/L (22-30); Creatinine 1 0.84 mg/dL (0.66-1.25); Glucose 114 mg/dL (74-106); Potassium 4.3 mmol/L (3.5-5.1); SGOT/AST 41 U/L (17-59); SGPT/ALT 47 U/L (0-50); SODIUM 141 mmol/L (137-145); Total Protein 7.9 g/dL (6.3-8.2)
[2019-11-26 14:44] LABS: ETHYL ALCOHOL < 10 mg/dL (0-10)
[2019-11-26 14:46] LABS: Lactic Acid 2.3 (0.4-2.0)
[2019-11-26 16:24] LABS: ATYPICAL LYMPHS 7 %; Lymphocytes 10 % (24-44); Monocyte 7 % (0.0-12.0); Neutrophils 76 % (36.-66.); Total Cells Counted 100
[2019-11-26 16:25] LABS: Platelet Estimate NORMAL (NORMAL)
== END 2019-11-26 15:03 | disposition left against medical advice (07) ==
LOC: ED 14:05
DX: R55 Syncope and collapse (principal); W19.XXXA Unspecified fall, initial encounter; I10 Essential (primary) hypertension; E11.9 Type 2 diabetes mellitus without complications; J44.9 Chronic obstructive pulmonary disease, unspecified; J45.909 Unspecified asthma, uncomplicated
CPT/HCPCS: 36415; 80053; 80307; 83605; 84484; 85025; 93005; 99284; G0480

== ENCOUNTER 2019-11-28 19:35 | Emergency (ER) | payer OTHER ==
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
[2019-11-28 20:17] VITALS: BP 106/76; PULSE 82; O2SAT 95
== END 2019-11-28 20:17 | disposition home or self-care (01) ==
LOC: ED 19:35
DX: F31.9 Bipolar disorder, unspecified (principal)
CPT/HCPCS: 99284

== ENCOUNTER 2019-12-30 11:07 | Emergency (ER) | payer OTHER ==
[2019-12-30 11:29] VITALS: BP 112/76; PULSE 72; O2SAT 98
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
== END 2019-12-30 11:53 | disposition home or self-care (01) ==
LOC: ED 11:07
DX: F41.8 Other specified anxiety disorders (principal); F91.9 Conduct disorder, unspecified; Z79.899 Other long term (current) drug therapy; E11.9 Type 2 diabetes mellitus without complications; I10 Essential (primary) hypertension
CPT/HCPCS: 99283

== ENCOUNTER 2020-01-10 15:40 | Emergency (ER) | payer OTHER ==
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
[2020-01-10 15:58] VITALS: BP 109/72
[2020-01-10] MEDS ORDERED: Sodium Chloride 0.9% 1000 ML 1,000 ML ONE (16:05)
[2020-01-10] MEDS: Sodium Chloride 0.9% 1000 ML 1,000 ML IV STA (16:10)
[2020-01-10 16:26] LABS: Hematocrit 49.8 % (42-50); Hemoglobin 16.7 gm/dl (12.5-18.0); Mean Corpuscular Hemoglobin 31.5 pg (26-32); Mean Corpuscular Hgb Concent. 33.5 g/dl (32-36); Platelet Count 257 K/mm3 (150-450); Red Cell Distribution Width 13.8 % (11.5-14.0)
[2020-01-10 16:31] LABS: ALBUMIN 4.3 g/dL (3.5-5.0); ALKALINE PHOSPHATASE 97 U/L (38-126); ANION GAP 16.7 MEQ/L (5-15); BLOOD UREA NITROGEN 11 mg/dL (9-20); CHLORIDE 103 mmol/L (98-107); Calcium 8.8 mg/dL (8.4-10.2); Carbon Dioxide 22 mmol/L (22-30); Creatinine 1 0.92 mg/dL (0.66-1.25); Glucose 147 mg/dL (74-106); Potassium 3.8 mmol/L (3.5-5.1); SGOT/AST 42 U/L (17-59); SGPT/ALT 57 U/L (0-50); SODIUM 138 mmol/L (137-145); Total Protein 7.8 g/dL (6.3-8.2)
[2020-01-10 16:50] VITALS: PULSE 80; O2SAT 93
[2020-01-10 18:33] LABS: Amphetamine,Urine NEGATIVE (NEGATIVE); Barbiturate,Urine NEGATIVE (NEGATIVE); Benzodiazepine,Urine POSITIVE (NEGATIVE); Cocaine,Urine NEGATIVE (NEGATIVE); Methadone,Urine NEGATIVE (NEGATIVE); Opiate,Urine NEGATIVE (NEGATIVE); PCP,Urine NEGATIVE (NEGATIVE); THC,Urine NEGATIVE (NEGATIVE)
[2020-01-10 23:12] LABS: Eosinophil 3 % (0.00-3.0); Lymphocytes 23 % (24-44); Monocyte 6 % (0.0-12.0); Neutrophils 68 % (36.-66.); Platelet Estimate NORMAL (NORMAL); Total Cells Counted 100
== END 2020-01-10 18:08 | disposition left against medical advice (07) ==
LOC: ED 15:40
DX: F41.8 Other specified anxiety disorders (principal); F10.10 Alcohol abuse, uncomplicated; I10 Essential (primary) hypertension; E78.5 Hyperlipidemia, unspecified; E11.9 Type 2 diabetes mellitus without complications; G47.00 Insomnia, unspecified; Z79.899 Other long term (current) drug therapy
CPT/HCPCS: 36000; 36415; 80053; 80307; 85025; 96360; 99284; G0480

== ENCOUNTER 2020-02-24 20:15 | Emergency (ER) | payer OTHER ==
--- NOTE | 2020-02-24 20:31 | ERPHSYRPT ---
- History of Present Illness Time Seen by Provider: 02/24/20 20:30 Source: patient Exam Limitations: no limitations Physician History: This is a 44-year-old overweight white male who has a history of hypertension, type 2 diabetes and schizoaffective disorder. He also has a history of recurrent bronchitis and has had pneumonia in the past. In the last 2 days this patient has had mildly worsening shortness of breath. Today there was associated cough and shortness of breath. He does not have any chest pain. Patient states that he has a chronic smoker in the last couple weeks he is increased his smoking of tobacco. Patient has an albuterol nebulizer which he does not routinely use. He did use this medication and apparatus today which was helpful for him. Patient arrives to the emergency department afebrile with an room air oxygen saturation of 98%. Patient's medication list includes albuterol nebulizer vials, lisinopril, Coreg and metformin Timing/Duration: day(s), worse Activities at Onset: none Severity of Dyspnea-Max: moderate Severity of Dyspnea-Current: mild Possible Cause: occasional episodes Modifying Factors: Improves With: albuterol nebulizer (Has helped) Associated Symptoms: cough Allergies/Adverse Reactions: pregabalin [From Lyrica] Allergy (Verified 02/24/20 20:38) quetiapine [From Seroquel] Allergy (Verified 02/24/20 20:38) Home Medications: Lisinopril 10 mg [Zestril 10 MG] 1 tab PO DAILY 06/27/19 [History] Carvedilol [Coreg] 25 mg PO BID 09/10/19 [History] Celecoxib 100 mg [celeBREX 100 MG] 200 mg PO DAILY 09/10/19 [History] Metformin HCl 500 mg [Glucophage 500 MG] 500 mg PO BID 09/10/19 [History] Simvastatin 20Mg [Zocor 20Mg] 1 tab PO DAILY 11/26/19 [History] ALPRAZolam [Alprazolam] 1 mg PO TID 12/30/19 [History] Hx Tetanus, Diphtheria Vaccination/Date Given: Yes Hx Influenza Vaccination/Date Given: No Hx Pneumococcal Vaccination/Date Given: No Travel Risk - International Travel Have you traveled outside of the country in past 3 weeks: No Have you or anyone close to you been diagnosed with or: No Do your reside in a community with a known COVID-19 case?: Yes If Yes where:: Co. - Coronavirus Screening Has patient experienced Coronavirus symptoms: Yes Symptoms experienced: respiratory symptoms (i.e.Cought,shortness of breath) - Review of Systems Constitutional: No Symptoms Eyes: No Symptoms Ears, Nose, & Throat: No Symptoms Respiratory: Cough, Dyspnea (Mild) Cardiac: No Symptoms Abdominal/Gastrointestinal: No Symptoms Genitourinary Symptoms: No Symptoms Musculoskeletal: No Symptoms Skin: No Symptoms Neurological: No Symptoms Psychological: No Symptoms Endocrine: No Symptoms Hematologic/Lymphatic: No Symptoms Immunological/Allergic: No Symptoms All Other Systems: Reviewed and Negative - Past Medical History Pertinent Past Medical History: Yes Neurological History: No Pertinent History ENT History: No Pertinent History Cardiac History: Hypertension Respiratory History: Bronchitis, Pneumonia Endocrine Medical History: Diabetes Type II Musculoskeletal History: Rheumatoid Arthritis GI Medical History: No Pertinent History History: No Pertinent History Psycho-Social History: Bipolar, Depression, Other Male Reproductive Disorders: No Pertinent History Other Medical History: Schizo-affective disorder, bipolar - Past Surgical History Past Surgical History: Yes Neuro Surgical History: No Pertinent History Cardiac: No Pertinent History Respiratory: No Pertinent History Gastrointestinal: No Pertinent History Genitourinary: No Pertinent History Musculoskeletal: Orthopedic Surgery Male Surgical History: No Pertinent History Other Surgical History: Right knee surgery and neck surgery - Social History Smoking Status: Current every day smoker How long have you smoked: years Exposure to second hand smoke: Yes Drug Use: marijuana Patient Lives Alone: Yes - Nursing Vital Signs Nursing Vital Signs: Initial Vital Signs Temperature 98.2 F 02/24/20 20:20 Pulse Rate 107 H 02/24/20 20:20 Respiratory Rate 20 02/24/20 20:20 Blood Pressure 136/81 02/24/20 20:20 O2 Sat by Pulse Oximetry 98 02/24/20 20:20 Pain Scale Pain Intensity 0 - Physical Exam General Appearance: mild distress, alert, anxiety Eye Exam: PERRL/EOMI, eyes nml inspection Ears, Nose, Throat Exam: hearing grossly normal Neck Exam: normal inspection, non-tender, supple, full range of motion Respiratory Exam: rhonchi (Mild bilateral), wheezing (Mild bilateral expiratory) , No chest tenderness Cardiovascular/Chest Exam: normal heart sounds, regular rate/rhythm Abdominal/Gastrointestinal Exam: soft, normal bowel sounds, No tenderness Rectal Exam: not done Extremity Exam: non-tender, normal range of motion, normal inspection, no calf tenderness, no pedal edema, pelvis stable Neurologic Exam: alert, 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, 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, 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 Skin Exam: normal color, warm, dry Lymphatic Exam: No adenopathy SpO2 Interpretation: normal SpO2: 98 O2 Delivery: Room Air - Course Nursing assessment & vital signs reviewed: Yes EKG Interpreted by Me: RATE (97), Sinus Rhythm, Right [place] Deviation, NORMAL INTERVALS, NORMAL QRS, Other (No acute ischemic changes) Ordered Tests: Active Orders 24 hr Category Date Time Status Aviation Safety Inspector STAT Care 02/24/20 20:43 Active EKG-ER Only STAT Care 02/24/20 20:42 Active IV Insertion STAT Care 02/24/20 20:42 Active Isolation, Initiate & Maintain Q4H Care 02/24/20 20:34 Active Pulse Oximetry (ED) STAT Care 02/24/20 20:42 Active CHEST 1 VIEW (PORTABLE) Stat Exams 02/24/20 20:42 Taken CBC W DIFF Stat Lab 02/24/20 20:40 Completed CMP Stat Lab 02/24/20 20:40 Completed D-DIMER QUANTITATIVE Stat Lab 02/24/20 20:40 Completed Lactic Acid Stat Lab 02/24/20 21:00 Completed NT PRO BNP Stat Lab 02/24/20 20:40 Completed TROPONIN Q3H Lab 02/24/20 20:40 Received TROPONIN Q3H Lab 02/24/20 23:45 Ordered TROPONIN Q3H Lab 02/25/20 02:45 Ordered TROPONIN Q3H Lab 02/25/20 05:45 Ordered TROPONIN Q3H Lab 02/25/20 08:45 Ordered Medication Summary Discontinued Medications Generic Name Dose Route Start Last Admin Trade Name Freq PRN Reason Stop Dose Admin Methylprednisolone Sodium Succinate 125 mg 02/24/20 20:42 02/24/20 21:05 Solu-Medrol 125 Mg IV 02/24/20 20:43 125 mg STAT ONE Administration Methylprednisolone Sodium Succinate Confirm 02/24/20 21:01 Solu-Medrol 125 Mg Administered 02/24/20 21:02 Dose 125 mg .ROUTE .[employer] Lab/Rad Data: Laboratory Result Diagrams 02/24/20 20:40 02/24/20 20:40 Laboratory Results 02/24/20 02/24/20 02/24/20 Range/Units 21:00 20:40 20:40 WBC (4.0-10.5) K/mm3 RBC (4.1-5.6) M/mm3 Hgb (12.5-18.0) gm/dl Hct (42-50) % MCV (78-100) fl MCH (26-32) pg MCHC (32-36) g/dl RDW (11.5-14.0) % Plt Count (150-450) K/mm3 MPV (7.5-11.0) fl Gran % (36.0-66.0) % Eos # (Auto) (0-0.5) Absolute Lymphs (auto) (1.0-4.6) Absolute Monos (auto) (0.0-1.3) Lymphocytes % (24.0-44.0) % Monocytes % (0.0-12.0) % Eosinophils % (0.00-5.0) % Basophils % (0.0-0.4) % Absolute Granulocytes (1.4-6.9) Basophils # (0-0.4) D-Dimer 358 (215-500) ng/mL Sodium 139 (137-145) mmol/L Potassium 3.6 (3.5-5.1) mmol/L Chloride 100 (98-107) mmol/L Carbon Dioxide 32 H (22-30) mmol/L Anion Gap 11.1 (5-15) MEQ/L BUN 8 L (9-20) mg/dL Creatinine 0.68 (0.66-1.25) mg/dL Estimated GFR > 60.0 ML/MIN Glucose 107 H (74-106) mg/dL Lactic Acid 1.6 (0.4-2.0) Calcium 9.2 (8.4-10.2) mg/dL Total Bilirubin 0.60 (0.2-1.3) mg/dL AST 43 (17-59) U/L ALT 67 H (0-50) U/L Alkaline Phosphatase 96 (38-126) U/L NT-Pro-B Natriuret Pep 94.7 (0-450) pg/mL Serum Total Protein 7.7 (6.3-8.2) g/dL Albumin 4.2 (3.5-5.0) g/dL 02/24/20 Range/Units 20:40 WBC 15.6 H (4.0-10.5) K/mm3 RBC 5.45 (4.1-5.6) M/mm3 Hgb 17.3 (12.5-18.0) gm/dl Hct 51.6 H (42-50) % MCV 94.7 (78-100) fl MCH 31.7 (26-32) pg MCHC 33.5 (32-36) g/dl RDW 14.0 (11.5-14.0) % Plt Count 254 (150-450) K/mm3 MPV 10.9 (7.5-11.0) fl Gran % 64.6 (36.0-66.0) % Eos # (Auto) 0.27 (0-0.5) Absolute Lymphs (auto) 3.58 (1.0-4.6) Absolute Monos (auto) 1.59 H (0.0-1.3) Lymphocytes % 23.0 L (24.0-44.0) % Monocytes % 10.2 (0.0-12.0) % Eosinophils % 1.7 (0.00-5.0) % Basophils % 0.5 (0.0-0.4) % Absolute Granulocytes 10.04 H (1.4-6.9) Basophils # 0.07 (0-0.4) D-Dimer (215-500) ng/mL Sodium (137-145) mmol/L Potassium (3.5-5.1) mmol/L Chloride (98-107) mmol/L Carbon Dioxide (22-30) mmol/L Anion Gap (5-15) MEQ/L BUN (9-20) mg/dL Creatinine (0.66-1.25) mg/dL Estimated GFR ML/MIN Glucose (74-106) mg/dL Lactic Acid (0.4-2.0) Calcium (8.4-10.2) mg/dL Total Bilirubin (0.2-1.3) mg/dL AST (17-59) U/L ALT (0-50) U/L Alkaline Phosphatase (38-126) U/L NT-Pro-B Natriuret Pep (0-450) pg/mL Serum Total Protein (6.3-8.2) g/dL Albumin (3.5-5.0) g/dL - Progress Progress: improved, re-examined Air Movement: good Progress Note: 02/24/20 21:45 Chest x-ray shows possible mild early infiltrate versus atelectasis. May be a technique issue. Patient does not want to stay in the emergency department for all his work-up to be completed. I will treat him for bronchitis/pneumonia. I will send a prescription of Z-Rehan and steroid to his pharmacy. Patient is aware that his symptoms may worsen he may be having an acute myocardial infarction he is aware that his symptoms could worsen and could include . Patient is not angry but does not want his family to wait any longer. Blood Culture(s) Obtained: No Antibiotics given: Yes Counseled pt/family regarding: lab results, diagnosis, need for follow-up, rad results - Departure Departure Disposition: Home, AMA Clinical Impression: Shortness of breath, Bronchitis Condition: Stable Critical Care Time: No Referrals: DAYSI ALLISON [Primary Care Provider] - Additional Instructions: Return to the emergency department if your symptoms worsen. Follow-up with your primary care physician for persistent symptoms. Take your prescriptions as prescribed. Increase your albuterol nebulizer to every 4 hours while awake. Prescriptions: Azithromycin 250 mg [Zithromax 250 MG TABLET] 250 mg PO ZPACK #6 tablet Prednisone 10 mg [Deltasone 10 mg] 10 mg PO TID #12 tablet
[2020-02-24] MEDS ORDERED: solu-MEDROL 125 MG IV ONE (20:42)
[2020-02-24] MEDS ORDERED: solu-MEDROL 125 MG ONE (21:01)
[2020-02-24 21:08] VITALS: PULSE 102
[2020-02-24 21:09] LABS: Absolute Neutrophil Ct (ANC) 10.04 (1.4-6.9); BASOPHIL % 0.5 % (0.0-0.4); Basophil (Absolute #) 0.07 (0-0.4); Eosinophil % 1.7 % (0.00-5.0); Eosinophil (Absolute #) 0.27 (0-0.5); Hematocrit 51.6 % (42-50); Hemoglobin 17.3 gm/dl (12.5-18.0); Lymphocyte (Absolute #) 3.58 (1.0-4.6); Mean Cell Volume 94.7 fl (78-100); Mean Corpuscular Hemoglobin 31.7 pg (26-32); Mean Corpuscular Hgb Concent. 33.5 g/dl (32-36); Mean Platelet Volume 10.9 fl (7.5-11.0); Monocyte (Absolute #) 1.59 (0.0-1.3); Monocytes % 10.2 % (0.0-12.0); Neutrophil % 64.6 % (36.0-66.0); Platelet Count 254 K/mm3 (150-450); Red Blood Count 5.45 M/mm3 (4.1-5.6); White Blood Count 15.6 K/mm3 (4.0-10.5)
[2020-02-24 21:35] LABS: ALBUMIN 4.2 g/dL (3.5-5.0); ALKALINE PHOSPHATASE 96 U/L (38-126); ANION GAP 11.1 MEQ/L (5-15); BLOOD UREA NITROGEN 8 mg/dL (9-20); CHLORIDE 100 mmol/L (98-107); Calcium 9.2 mg/dL (8.4-10.2); Carbon Dioxide 32 mmol/L (22-30); Creatinine 1 0.68 mg/dL (0.66-1.25); Glucose 107 mg/dL (74-106); NT PRO BNP 94.7 pg/mL (0-450); Potassium 3.6 mmol/L (3.5-5.1); SGOT/AST 43 U/L (17-59); SGPT/ALT 67 U/L (0-50); SODIUM 139 mmol/L (137-145); Total Protein 7.7 g/dL (6.3-8.2)
[2020-02-24] MEDS ORDERED: Levofloxacin 500 MG Tablet PO ONE (21:44)
[2020-02-24] MEDS ORDERED: Levofloxacin 500 MG Tablet ONE (21:45)
[2020-02-24 21:56] VITALS: BP 108/64; O2SAT 95
[2020-02-24 22:01] LABS: INFLUENZA A NEGATIVE (NEGATIVE); INFLUENZA B NEGATIVE (NEGATIVE); RESPIRATORY SYNCTIAL VIRUS NEGATIVE (Negative)
[2020-02-24 22:36] LABS: Slide Review 1 YES
--- NOTE | 2020-02-25 08:23 | XRAY ---
Indication: Short of breath. Comparison: September 10, 2019. Portable chest remains grossly clear. Heart and mediastinal structures within normal limits. Bony thorax intact. No new/acute findings.
== END 2020-02-24 21:56 | disposition left against medical advice (07) ==
LOC: ED 20:15
DX: R06.02 Shortness of breath (principal); J40 Bronchitis, not specified as acute or chronic; I10 Essential (primary) hypertension; E11.9 Type 2 diabetes mellitus without complications; F25.9 Schizoaffective disorder, unspecified; F17.200 Nicotine dependence, unspecified, uncomplicated; Z79.84 Long term (current) use of oral hypoglycemic drugs; Z79.899 Other long term (current) drug therapy
CPT/HCPCS: 36000; 36415; 71045; 80053; 83605; 83880; 84484; 85025; 85379; 87631; 93005; 93041; 94760; 96374; 99284; J2930; A9270-GY

== ENCOUNTER 2020-03-26 14:55 | Observation (INO) | payer OTHER ==
[2020-03-26] MEDS ORDERED: ZOFRAN ODT 4 MG PO ONE (15:25)
[2020-03-26] MEDS ORDERED: Hydromorphone 1 mg/ml Ampule IM ONE (15:26)
--- NOTE | 2020-03-26 15:26 | ERPHSYRPT ---
- History of Present Illness Time Seen by Provider: 03/26/20 15:15 Source: patient Exam Limitations: no limitations Patient Subjective Stated Complaint: pt reports approx 0830 this morning he was bent down to wipe the floor when he fell backward landing on his tailbone, pt denies any other injury. pt denies striking his head, pt denies LOC. pt reports he called his PCP to make an appt but could not wait for an appointment on Sunday. pt refuses to undress at this time. Triage Nursing Assessment: pt is aox3, pupils perrl, afebrile, resps easy and non labored, pt is diaphoretic, pt radial pulses strong and equal, cap refill < 3 seconds. unable to assess pt skin at this time, pt refusal at this time to undress. Physician History: This is a 45-year-old morbidly obese white male who fell at approximately 830 this morning onto his buttock and coccyx area. He has had significant pain but says still been able to put on his shoe socks and pants. He is concerned about taking them off again because it was so difficult for him to put them on. Patient denies a head injury and he has no other pain complaints. Patient did ambulate into his room in the emergency department. She states it feels better for him to stand Occurred: this morning Reason for Fall: tripped Injuries/Pain Location: back (Sacrum and coccyx.) Loss of Consciousness: no loss of consciousness Quality: aching Severity of Pain-Max: moderate Severity of Pain-Current: moderate Modifying Factors: Improves With: movement (Worsens), other (Improves with standing) Associated Symptoms (Fall): denies symptoms Allergies/Adverse Reactions: pregabalin [From Lyrica] Allergy (Verified 03/26/20 15:19) pt reports unknown reaction but confirms allergy quetiapine [From Seroquel] Allergy (Verified 03/26/20 15:18) pt reports this medication caused him to "black out" Home Medications: Lisinopril 10 mg [Zestril 10 MG] 1 tab PO DAILY 06/27/19 [History] Carvedilol [Coreg] 25 mg PO BID 09/10/19 [History] Celecoxib 100 mg [celeBREX 100 MG] 200 mg PO DAILY 09/10/19 [History] Metformin HCl 500 mg [Glucophage 500 MG] 500 mg PO BID 09/10/19 [History] Simvastatin 20Mg [Zocor 20Mg] 1 tab PO DAILY 11/26/19 [History] ALPRAZolam [Alprazolam] 1 mg PO TID 12/30/19 [History] Hx Tetanus, Diphtheria Vaccination/Date Given: Yes Hx Influenza Vaccination/Date Given: No Hx Pneumococcal Vaccination/Date Given: No Immunizations Up to Date: Yes Travel Risk - International Travel Have you traveled outside of the country in past 3 weeks: No Have you or anyone close to you been diagnosed with or: No Do your reside in a community with a known COVID-19 case?: Yes If Yes where:: [place] - Coronavirus Screening Has patient experienced Coronavirus symptoms: No - Review of Systems Constitutional: No Symptoms Eyes: No Symptoms Ears, Nose, & Throat: No Symptoms Respiratory: No Symptoms Cardiac: No Symptoms Abdominal/Gastrointestinal: No Symptoms Genitourinary Symptoms: No Symptoms Musculoskeletal: Fall, Injury (To sacrum and coccyx region) Skin: No Symptoms Neurological: No Symptoms Psychological: No Symptoms Endocrine: No Symptoms Hematologic/Lymphatic: No Symptoms Immunological/Allergic: No Symptoms All Other Systems: Reviewed and Negative - Past Medical History Pertinent Past Medical History: Yes Neurological History: No Pertinent History ENT History: No Pertinent History Cardiac History: Hypertension Respiratory History: Bronchitis, Pneumonia Endocrine Medical History: Diabetes Type II Musculoskeletal History: Rheumatoid Arthritis GI Medical History: No Pertinent History History: No Pertinent History Psycho-Social History: Bipolar, Depression, Other Male Reproductive Disorders: No Pertinent History Other Medical History: Schizo-affective disorder, bipolar - Past Surgical History Past Surgical History: Yes Neuro Surgical History: No Pertinent History Cardiac: No Pertinent History Respiratory: No Pertinent History Gastrointestinal: No Pertinent History Genitourinary: No Pertinent History Musculoskeletal: Orthopedic Surgery Male Surgical History: No Pertinent History Other Surgical History: Right knee surgery and neck surgery - Social History Smoking Status: Current every day smoker How long have you smoked: 0.5 Exposure to second hand smoke: Yes Drug Use: marijuana Patient Lives Alone: Yes - Nursing Vital Signs Nursing Vital Signs: Initial Vital Signs Temperature 97.5 F 03/26/20 15:02 Pulse Rate 110 H 03/26/20 15:02 Respiratory Rate 24 03/26/20 15:02 Blood Pressure 140/104 03/26/20 15:02 O2 Sat by Pulse Oximetry 95 03/26/20 15:02 Pain Scale Pain Intensity 10 - [place] Coma Score Best Eye Response ([place]): (4) open spontaneously Best Verbal Response ([place]): (5) oriented Best Motor Response ([place]): (6) obeys commands [place] Total: 15 - Physical Exam General Appearance: mild distress, alert, anxiety Head Injury: no evidence of injury Eye Exam: PERRL/EOMI, eyes nml inspection ENT Exam: airway nml, nml ext.inspection Neck Exam: supple, trachea midline, full range of motion, normal alignment Respiratory/Chest Exam: No chest tenderness Gastrointestinal Exam: No tenderness Rectal Exam: other (Evaluation of the perianal area reveals a almost appears like an anal fistula present. 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 nml as tested, sensation nml Skin Exam: normal color, warm, dry SpO2 Interpretation: normal SpO2: 95 O2 Delivery: Room Air - Course Nursing assessment & vital signs reviewed: Yes Ordered Tests: Active Orders 24 hr Category Date Time Status SACRUM AND COCCYX Stat Exams 03/26/20 15:20 Completed Medication Summary Discontinued Medications Generic Name Dose Route Start Last Admin Trade Name Edwin PRN Reason Stop Dose Admin Hydromorphone HCl 1 mg 03/26/20 15:26 Hydromorphone 1 Mg/Ml Ampule IM 03/26/20 15:27 STAT ONE Hydromorphone HCl Confirm 03/26/20 15:33 Hydromorphone 1 Mg/Ml Ampule Administered 03/26/20 15:34 Dose 1 mg .ROUTE .STK-MED ONE Ondansetron HCl 4 mg 03/26/20 15:25 Zofran Odt 4 Mg PO 03/26/20 15:26 STAT ONE Ondansetron HCl Confirm 03/26/20 15:33 Zofran Odt 4 Mg Administered 03/26/20 15:34 Dose 4 mg .ROUTE .STK-MED ONE - Progress Progress: improved Progress Note: 03/26/20 15:33 X-ray of the sacrum and coccyx reveals no acute bony fracture or dislocation. Medical decision making: The patient states that he noticed a swelling area in the perianal area after he fell. It is hurting deep in the perineum area as well as in the area of the sacrum and coccyx. On examination of the perianal area there appears to be some thin pus fluid present. It is draining spontaneously at this time. X-ray reveals no fracture. I will order a CAT scan of the abdomen and pelvis and place an IV and start intravenous antibiotics for him. We will obtain laboratory work-up.. 03/26/20 15:39 - Departure Departure Disposition: Home Clinical Impression: Contusion of sacrum Condition: Stable Critical Care Time: No Referrals: DAYSI ALLISON [Primary Care Provider] -
--- NOTE | 2020-03-26 15:31 | XRAY ---
Indication: Pain following fall. Comparison: None 3 view sacrum/coccyx obtained. No bony, articular, or soft tissue abnormalities.
[2020-03-26] MEDS ORDERED: ZOFRAN ODT 4 MG ONE (15:33)
[2020-03-26] MEDS ORDERED: Hydromorphone 1 mg/ml Ampule ONE ×2 (15:33→15:51)
[2020-03-26] MEDS ORDERED: Sodium Chloride 0.9% 1000 ML 1,000 ML IV STA ×2 (15:42→17:54)
[2020-03-26] MEDS ORDERED: Hydromorphone 1 mg/ml Ampule IV ONE (15:42)
[2020-03-26] MEDS ORDERED: Ativan 2 MG/1 ML VIAL IV ONE (15:44)
[2020-03-26] MEDS ORDERED: Ativan 2 MG/1 ML VIAL ONE (15:50)
[2020-03-26 16:12] LABS: Hemoglobin 17.4 gm/dl (12.5-18.0); Mean Cell Volume 93.2 fl (78-100); Mean Corpuscular Hemoglobin 31.8 pg (26-32); Mean Corpuscular Hgb Concent. 34.1 g/dl (32-36); Mean Platelet Volume 10.7 fl (7.5-11.0); Platelet Count 286 K/mm3 (150-450); Red Blood Count 5.47 M/mm3 (4.1-5.6); Red Cell Distribution Width 13.3 % (11.5-14.0); White Blood Count 17.4 K/mm3 (4.0-10.5)
[2020-03-26] MEDS ORDERED: Sodium Chloride 0.9% 1000 ML 1,000 ML ONE ×2 (16:13→17:53)
[2020-03-26 16:25] LABS: ALBUMIN 4.4 g/dL (3.5-5.0); ALKALINE PHOSPHATASE 111 U/L (38-126); ANION GAP 14.1 MEQ/L (5-15); BLOOD UREA NITROGEN 8 mg/dL (9-20); CHLORIDE 102 mmol/L (98-107); Calcium 8.9 mg/dL (8.4-10.2); Carbon Dioxide 25 mmol/L (22-30); Creatinine 1 0.74 mg/dL (0.66-1.25); Glucose 109 mg/dL (74-106); SGOT/AST 37 U/L (17-59); SGPT/ALT 63 U/L (0-50); SODIUM 138 mmol/L (137-145); Total Protein 7.9 g/dL (6.3-8.2)
[2020-03-26 16:32] LABS: BAND 7 % (0.0-2.0); Lymphocytes 22 % (24-44); Monocyte 8 % (0.0-12.0); Neutrophils 63 % (36.-66.); Platelet Estimate NORMAL (NORMAL); Total Cells Counted 100
[2020-03-26 16:33] LABS: Absolute Neutrophil Ct (ANC) 12.21 (1.4-6.9)
--- NOTE | 2020-03-26 16:37 | XRAY ---
Indication: Perianal abscess/infection. Multiple contiguous axial images obtained through the abdomen and pelvis without contrast as ordered. Comparison: None Lung bases are clear. Heart is not enlarged. Noncontrasted stomach and bowel loops appear nonobstructed. Normal appendix. No free fluid/air. Anus demonstrates mild circumferential wall thickening, inflammatory/infectious versus hemorrhoids. No suspicious fluid/air collection. Mild fatty hepatomegaly measuring 20 cm. Right mid kidney demonstrates 2.1 cm round noncalcified exophytic mass slightly more dense then renal parenchyma, either solid renal mass versus complex/viscous cyst. Lack if IV contrast precludes further characterization. Remaining liver, gallbladder, pancreas, spleen, adrenal glands, kidneys, ureters, and bladder appear unremarkable for noncontrast exam. Minimal scattered aortoiliac calcifications without AAA. Osseous structures intact. Impression: 1. Anal circumferential wall thickening, inflammatory/infectious versus hemorrhoids. No suspicious fluid/air collection. 2. 2.1 cm right mid renal exophytic mass, not simple cyst. CT or MRI with contrast exam may yield further information. 3. Fatty hepatomegaly.
[2020-03-26] MEDS ORDERED: Zosyn 3.375 GM Vial 3.375 GM in Sodium Chloride 100ML MINI-BAG PLUS 100 ML IV ONE (17:21)
[2020-03-26] MEDS ORDERED: Sodium Chloride 100ML MINI-BAG PLUS 100 ML IV ONE (17:25)
[2020-03-26] MEDS ORDERED: Zosyn 3.375 GM Vial IV ONE ×2 (17:25→23:50)
[2020-03-26] MEDS ORDERED: Vancomycin 1GM/ Ns 250ML*** 250 ML IV ONE ×2 (17:26→21:08)
[2020-03-26] MEDS: Vancomycin 1GM/ Ns 250ML*** 250 ML IV ONE ×2 (17:31→21:10)
[2020-03-26] MEDS: PROVENTIL 2.5 MG/3 ML NEB IH SCH (20:02)
[2020-03-26] MEDS: Advair Hfa 115/21 Common canister IH SCH (20:03)
[2020-03-26] MEDS ORDERED: PROVENTIL 2.5 MG/3 ML NEB IH PRN (20:04)
[2020-03-26] MEDS ORDERED: HUMALOG SQ PRN (20:19)
[2020-03-26] MEDS ORDERED: PHARMACY DOSING REQUIRED: VANCOMYCIN IV SCH (20:30)
[2020-03-26] MEDS ORDERED: Nicoderm CQ 21 MG TOP SCH (20:30)
[2020-03-26] MEDS ORDERED: PHARMACY DOSING REQUEST MC SCH (20:30)
[2020-03-26] MEDS: Norco 10/325 MG Tablet PO PRN (20:30)
[2020-03-26] MEDS: COREG 12.5 MG PO SCH (21:10)
[2020-03-26] MEDS: XANAX 1 MG PO SCH (21:10)
[2020-03-26] MEDS: Glucophage 500 MG PO SCH (21:10)
[2020-03-26] MEDS ORDERED: VANCOCIN 1 GM VIAL*** 1 GM in Sodium Chloride 0.9% 250 ML 250 ML IV SCH (21:30)
[2020-03-26] MEDS ORDERED: ZOCOR 20MG PO SCH (22:00)
[2020-03-27] MEDS: Zosyn 3.375 GM Vial 3.375 GM in Sodium Chloride 100ML MINI-BAG PLUS 100 ML IV SCH ×2 (00:15→05:32)
[2020-03-27] MEDS: Norco 10/325 MG Tablet PO PRN ×2 (00:25→07:37)
[2020-03-27] MEDS ORDERED: Zosyn 3.375 GM Vial IV ONE (05:30)
[2020-03-27 06:19] LABS: Absolute Neutrophil Ct (ANC) 6.47 (1.4-6.9); BASOPHIL % 0.6 % (0.0-0.4); Basophil (Absolute #) 0.06 (0-0.4); Eosinophil (Absolute #) 0.31 (0-0.5); Hemoglobin 15.7 gm/dl (12.5-18.0); Lymphocyte (Absolute #) 2.31 (1.0-4.6); Lymphocytes % 22.6 % (24.0-44.0); Mean Cell Volume 96.8 fl (78-100); Mean Corpuscular Hemoglobin 31.7 pg (26-32); Mean Corpuscular Hgb Concent. 32.7 g/dl (32-36); Mean Platelet Volume 10.6 fl (7.5-11.0); Monocyte (Absolute #) 1.05 (0.0-1.3); Monocytes % 10.3 % (0.0-12.0); Neutrophil % 63.5 % (36.0-66.0); Platelet Count 225 K/mm3 (150-450); Red Blood Count 4.96 M/mm3 (4.1-5.6); Red Cell Distribution Width 13.5 % (11.5-14.0); White Blood Count 10.2 K/mm3 (4.0-10.5)
[2020-03-27 06:29] LABS: ALBUMIN 3.5 g/dL (3.5-5.0); ALKALINE PHOSPHATASE 81 U/L (38-126); ANION GAP 10.3 MEQ/L (5-15); BLOOD UREA NITROGEN 8 mg/dL (9-20); CHLORIDE 102 mmol/L (98-107); Carbon Dioxide 31 mmol/L (22-30); Creatinine 1 0.79 mg/dL (0.66-1.25); Glucose 123 mg/dL (74-106); Potassium 4.2 mmol/L (3.5-5.1); SGOT/AST 40 U/L (17-59); SGPT/ALT 54 U/L (0-50); SODIUM 140 mmol/L (137-145); Total Protein 6.5 g/dL (6.3-8.2)
[2020-03-27] MEDS ORDERED: TYLENOL 325 MG ONE (07:00)
[2020-03-27] MEDS: Advair Hfa 115/21 Common canister IH SCH (07:03)
[2020-03-27] MEDS: PROVENTIL 2.5 MG/3 ML NEB IH SCH (07:03)
[2020-03-27 07:23] VITALS: BP 134/80; PULSE 85; O2SAT 97
[2020-03-27] MEDS: Glucophage 500 MG PO SCH (07:37)
[2020-03-27] MEDS ORDERED: TRIHEXYPHENIDYL HCL 2 MG PO PRN (09:11)
[2020-03-27] MEDS: XANAX 1 MG PO SCH (09:24)
[2020-03-27] MEDS: COREG 12.5 MG PO SCH (09:24)
[2020-03-27] MEDS ORDERED: MEDICATION INTERVENTION MC SCH ×2 (09:30)
[2020-03-27] MEDS ORDERED: Zestril 10 MG PO SCH (10:00)
[2020-03-27] MEDS ORDERED: LURASIDONE HCL 40 MG PO SCH (10:00)
[2020-03-27] MEDS ORDERED: VANCOCIN 1 GM VIAL*** 2.5 GM in Sodium Chloride 0.9% 500 ML 500 ML IV SCH (10:00)
[2020-03-27] MEDS ORDERED: celeBREX 100 MG PO SCH (10:00)
--- NOTE | 2020-03-29 12:14 | SSS ---
DISCHARGE DIAGNOSES: 1) PERIRECTAL ABSCESS. 2) NEW KIDNEY LESION. 3) MORBID OBESITY. HISTORY: The patient is a 45 year-old white male apparently reportedly fell at home. He was having such pain that he could not wait to see me in the office. He therefore went to the emergency room where on evaluation he was found to have what appeared to be a perirectal abscess which spontaneously drained during evaluation by the emergency room doctor. PAST MEDICAL/SURGICAL HISTORY: Significant for his morbid obesity, hypertension, diabetes mellitus type 2 and apparently schizoaffective disorder. HOME MEDICATIONS: Currently lisinopril 10 mg a day, carvedilol 25 mg b.i.d., Celebrex 100 mg b.i.d., Metformin 500 mg b.i.d., Simvastatin 20 mg a day and Alprazolam 1 mg t.i.d. PRN. ALLERGIES: LYRICA. SEROQUEL. PHYSICAL EXAMINATION: The patient's vital signs on admission showed temperature 97.5F, pulse 110, respiratory rate 24 and blood pressure 140/104. O2 saturation 95% on room air. HEENT: Normocephalic, atraumatic. Pupils equal round reactive to light. Extraocular movements intact. Oropharynx is pink and moist. NECK: Supple without lymphadenopathy, thyromegaly or JVD. CHEST: Clear to auscultation. HEART: Regular rate and rhythm. ABDOMEN: Soft. No palpable masses. RECTAL: Revealed slight amount of drainage at this time. No palpable masses. EXTREMITIES: Without cyanosis, clubbing or edema. NEUROLOGIC: The patient is currently alert and oriented x3. LAB DATA AND TESTS: Initial lactic acid 1.5, glucose 109, BUN 8, creatinine 0.74. Electrolytes were normal. Liver enzymes were normal other than slight elevation of SGPT at 63. White count was 17,400 with 7 bands and 63 polys. His hemoglobin was 17.4, PLT count 286,000. Prealbumin was 14.59. HOSPITAL COURSE: The patient was admitted to the medicine [facility]ines on IV antibiotics. He had Vancomycin and Zosyn initially. His white count by the next morning was down to 10,200. The patient was feeling 100% better and was anxious to go home. He was felt to be ready for discharge home and sent home on Bactrim DS twice a day and Flagyl 500 mg t.i.d. He will have follow up appointment in my office in the next week and surgical evaluation for possible intervention as an outpatient as well. The patient was also incidentally noted to have exophytic renal lesion 2.1 cm in size this will also be followed up as an outpatient with further evaluation and consultation by nephrology.
== END 2020-03-27 10:25 | disposition home or self-care (01) ==
LOC: ED 14:55 → MED SURG 18:16
PROVIDERS: ADMIT Family Medicine; ATTEND Family Medicine
DX: K61.1 Rectal abscess (principal); N28.9 Disorder of kidney and ureter, unspecified; E11.9 Type 2 diabetes mellitus without complications; I10 Essential (primary) hypertension; E66.01 Morbid (severe) obesity due to excess calories; Z68.42 Body mass index [BMI] 45.0-49.9, adult; W19.XXXA Unspecified fall, initial encounter; Y92.009 Unspecified place in unspecified non-institutional (private) residence as the place of occurrence of the external cause; Z79.899 Other long term (current) drug therapy
CPT/HCPCS: 36000; 36415; 72220; 74176; 80053; 82962; 83036; 83605; 84134; 85025; 87040; 87070; 93268; 94640; 94760; 94762; 96360; 96361; 96365; 96368; 96372; 96374; 96375; 96376; 99285; J1170; J2060; J3370; J7609; Q0162; A9270-GY; G0378

== ENCOUNTER 2020-04-06 11:47 | Emergency (ER) | payer OTHER ==
[2020-04-06] MEDS ORDERED: Hydromorphone 1 mg/ml Ampule IM ONE (12:12)
[2020-04-06] MEDS ORDERED: Phenergan 25 MG INJ IM ONE (12:12)
--- NOTE | 2020-04-06 12:18 | ERPHSYRPT ---
- History of Present Illness Time Seen by Provider: 04/06/20 12:10 Source: patient Exam Limitations: no limitations Physician History: This is a 45-year-old gentleman who has a perianal abscess/inflammatory region. It was placed on antibiotics and tramadol pain medication. Patient has a surgery scheduled for April. He is out of his tramadol pain medication which was not helping him. Patient states that he cannot wait an entire week without pain medication. He does not want to get into a gown. He wants pain relief. Timing/Duration: day(s) (Several) Severity: moderate Modifying Factors: Improves With: movement Associated Symptoms: denies symptoms Allergies/Adverse Reactions: pregabalin [From Lyrica] Allergy (Verified 03/26/20 15:19) pt reports unknown reaction but confirms allergy quetiapine [From Seroquel] Allergy (Verified 03/26/20 15:18) pt reports this medication caused him to "black out" Home Medications: Lisinopril 10 mg [Zestril 10 MG] 1 tab PO DAILY 06/27/19 [History] Carvedilol [Coreg] 25 mg PO BID 09/10/19 [History] Metformin HCl 500 mg [Glucophage 500 MG] 500 mg PO BID 09/10/19 [History] Simvastatin 20Mg [Zocor 20Mg] 1 tab PO HS 11/26/19 [History] ALPRAZolam [Alprazolam] 1 mg PO TID 12/30/19 [History] Albuterol Sulfate 1 neb IH TID PRN PRN 03/26/20 [History] Metronidazole 500 mg [Flagyl 500 MG] 500 mg PO TID 04/02/20 [History] Hx Tetanus, Diphtheria Vaccination/Date Given: Yes Hx Influenza Vaccination/Date Given: No Hx Pneumococcal Vaccination/Date Given: No Travel Risk - International Travel Have you traveled outside of the country in past 3 weeks: No Have you or anyone close to you been diagnosed with or: No Do your reside in a community with a known COVID-19 case?: Yes If Yes where:: [facility] - Coronavirus Screening Has patient experienced Coronavirus symptoms: No - Review of Systems Constitutional: No Symptoms Eyes: No Symptoms Ears, Nose, & Throat: No Symptoms Respiratory: No Symptoms Cardiac: No Symptoms Abdominal/Gastrointestinal: No Symptoms Genitourinary Symptoms: No Symptoms Musculoskeletal: No Symptoms Skin: Other (Pain in the perianal area) Neurological: No Symptoms Psychological: No Symptoms Endocrine: No Symptoms Hematologic/Lymphatic: No Symptoms Immunological/Allergic: No Symptoms All Other Systems: Reviewed and Negative - Past Medical History Pertinent Past Medical History: Yes Neurological History: No Pertinent History ENT History: No Pertinent History Cardiac History: Hypertension Respiratory History: Bronchitis, Pneumonia Endocrine Medical History: Diabetes Type II Musculoskeletal History: Rheumatoid Arthritis GI Medical History: No Pertinent History History: No Pertinent History Psycho-Social History: Anxiety, Bipolar, Depression, Other Male Reproductive Disorders: No Pertinent History Other Medical History: Schizo-affective disorder, bipolar, PTSD, - Past Surgical History Past Surgical History: Yes Neuro Surgical History: No Pertinent History Cardiac: No Pertinent History Respiratory: No Pertinent History Gastrointestinal: No Pertinent History Genitourinary: No Pertinent History Musculoskeletal: Orthopedic Surgery Male Surgical History: No Pertinent History Other Surgical History: Right knee surgery and neck surgery - Social History Smoking Status: Current every day smoker How long have you smoked: 33 Exposure to second hand smoke: Yes Drug Use: marijuana Patient Lives Alone: Yes - Physical Exam General Appearance: mild distress, alert, anxiety, obese Eye Exam: PERRL/EOMI, eyes nml inspection Ears, Nose, Throat Exam: normal ENT inspection, moist mucous membranes Neck Exam: normal inspection, non-tender, supple, full range of motion Respiratory Exam: No chest tenderness Gastrointestinal/Abdomen Exam: No tenderness Rectal Exam: not done Extremity Exam: normal inspection, normal range of motion, pelvis stable Neurologic Exam: alert, 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, cooperative, 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 Skin Exam: other (Patient did not want to get into a gown and remove his pants because of the tenderness in the perianal/perineal area) Lymphatic Exam: No adenopathy SpO2 Interpretation: normal O2 Delivery: Room Air - Course Nursing assessment & vital signs reviewed: Yes - Progress Progress: unchanged Counseled pt/family regarding: diagnosis, need for follow-up, rad results - Departure Departure Disposition: Home Clinical Impression: Pain of perianal area, Encounter for medical screening examination Condition: Stable Critical Care Time: No Referrals: DAYSI ALLISON [Primary Care Provider] - Additional Instructions: Follow-up with your primary care doctor or surgeon for further pain management issues. Prescriptions: Hydrocodone/APAP 5-325 Tab^^^ [[place] 5-325 Tablet^^^] 1 tab PO Q8H PRN PRN #8 tablet MDD 3 PRN Reason: Pain
[2020-04-06 12:21] VITALS: BP 123/77; PULSE 95; O2SAT 97
[2020-04-06] MEDS ORDERED: Phenergan 25 MG INJ ONE (12:26)
[2020-04-06] MEDS ORDERED: Hydromorphone 1 mg/ml Ampule ONE (12:27)
== END 2020-04-06 13:17 | disposition home or self-care (01) ==
LOC: ED 11:47
DX: R10.2 Pelvic and perineal pain (principal); I10 Essential (primary) hypertension; E11.9 Type 2 diabetes mellitus without complications; F31.9 Bipolar disorder, unspecified; F20.9 Schizophrenia, unspecified; Z72.0 Tobacco use; F12.90 Cannabis use, unspecified, uncomplicated; F43.10 Post-traumatic stress disorder, unspecified; X58.XXXA Exposure to other specified factors, initial encounter; Y93.9 Activity, unspecified
CPT/HCPCS: 96372; 99283; J1170; J2550

== ENCOUNTER 2020-04-14 08:08 | Day surgery (SDC) | payer OTHER ==
[~2020-04-14 08:08] MED LIST: Lactated Ringers 1,000 ML IV SCH; Sensorcaine 0.25% 10 ML ONE
[2020-04-14] MEDS ORDERED: Decadron 4 MG INJ ONE (09:08)
[2020-04-14] MEDS ORDERED: DIPRIVAN 200 MG/20 ML IV ONE ×2 (09:08→09:43)
[2020-04-14] MEDS ORDERED: SUBLIMAZE 100 MCG/2 ML ONE ×3 (09:08→10:37)
[2020-04-14] MEDS ORDERED: Quelicin Fliptop 200 MG/10 ML ONE (09:08)
[2020-04-14] MEDS ORDERED: Zofran 4 MG/2 ML VIAL ONE (09:08)
[2020-04-14] MEDS ORDERED: Zemuron 100 MG/10 ML ONE (09:08)
[2020-04-14] MEDS ORDERED: Xylocaine-Mpf 2% 5 Ml Vial ONE (09:08)
[2020-04-14] MEDS ORDERED: BRIDION 200MG/2ML IV ONE (09:08)
[2020-04-14] MEDS ORDERED: Ketamine HCl 50 MG/ML ONE (09:09)
[2020-04-14] MEDS ORDERED: KEFZOL 1 GM ONE (09:32)
[2020-04-14] MEDS ORDERED: Ephedrine Sulfate 50 MG/ML ONE (10:03)
[2020-04-14] MEDS ORDERED: DILAUDID 2 MG INJECTION ONE (10:37)
[2020-04-14 11:41] VITALS: BP 143/94; PULSE 86; O2SAT 93
--- NOTE | 2020-04-14 12:40 | OP ---
SURGERY DATE/TIME: 04/14/2020 0931 PREOPERATIVE DIAGNOSIS: Pilonidal cyst. POSTOPERATIVE DIAGNOSES: Pilonidal cyst. PROCEDURES: 1) Pilonidal cystectomy. 2) Wound Vac placement greater than 20 cm/sq. SURGEON: Nicho Blankenship M.D. ANESTHESIA: General. ESTIMATED BLOOD LOSS: Less than 20 cc. COMPLICATIONS: None. SPECIMEN: Pilonidal cyst. FINDINGS: Pilonidal cyst with multiple drainage sinuses. The wound measures 5 cm craniocaudad, 4 cm left to right, 5 cm deep. PATIENT PRESENTATION: This patient presents with chronic pilonidal disease with a recent infection that resolved with antibiotics. After discussing risks, benefits of pilonidal cystectomy including the plan for Wound Vac placement for postoperative care and the potential complications of surgery and length of wound healing, the patient wished to proceed with the procedure. DESCRIPTION OF PROCEDURE: The patient was brought to the operating room and placed under general anesthesia, placed in prone positioning. The pilonidal area was prepped and draped in sterile fashion. The area was marked out. He had a cyst on the right side and multiple midline drainage tracts. An ellipse in the center was extended triangularly to the right side to include the cyst and the drainage tracts in a single excision. This was then incised with electrocautery and taken down to the presacral fascia in the midline and all of the cysts and sinus tracts were excised with electrocautery. The wound was irrigated and suctioned dry. The wound was hemostatic. Attention was then turned to Wound Vac placement. The black sponge was folded into the wound. Another black sponge was used over Adaptic and brought out the patient's right side. Tegaderm was then placed over the sponges. Adaptic was placed on the sponge on the right side and the Wound Vac is started. The seal was excellent. The patient was then recovered and taken to PACU in stable condition.
== END 2020-04-14 11:49 | disposition home or self-care (01) ==
LOC: SDC 08:08
PROVIDERS: ATTEND Surgery
DX: L05.91 Pilonidal cyst without abscess (principal)
CPT/HCPCS: J0330; J0690; J1100; J1170; J2405; J2704; J3010

== ENCOUNTER 2020-04-30 13:11 | Emergency (ER) | payer OTHER ==
--- NOTE | 2020-04-30 13:54 | ERPHSYRPT ---
- History of Present Illness Time Seen by Provider: 04/30/20 13:12 Source: patient Exam Limitations: no limitations Patient Subjective Stated Complaint: Pt states "I have a mass on my kidney and Dr. Pisano took me off my medications and I am in a bad way. I think I want to kill myself in any way I can. I also recently had a cyst removed from my tailbone that I am being treated for and it is packed and I was supposed to have a wound vac placed on it today but I left before the nurse came." Triage Nursing Assessment: Pt presented alert and oriented X 3, skin pwd. Pt is withdrawn, slow speech, sighing quite a bit, head hung down. Pt is in no apparent respiratory distress. Physician History: Patient is here with thoughts of possibly hurting himself. Patient states that he has been off of his psych meds for an unknown amount of time. Since that time has had increasing thoughts of self-harm. Patient has known schizophrenia, other mental health issues. Patient was supposed to get a wound VAC done today. However, he came to the emergency department instead. This was for a recently removed pilonidal cyst. Timing/Duration: today Severity: moderate Modifying Factors: Worsens With: cold therapy, eating Associated Symptoms: denies symptoms Allergies/Adverse Reactions: pregabalin [From Lyrica] Allergy (Verified 03/26/20 15:19) pt reports unknown reaction but confirms allergy quetiapine [From Seroquel] Allergy (Verified 03/26/20 15:18) pt reports this medication caused him to "black out" varenicline [From Chantix] Adverse Reaction (Verified 04/06/20 12:22) Home Medications: Lisinopril 10 mg [Zestril 10 MG] 1 tab PO DAILY 06/27/19 [History] Carvedilol [Coreg] 25 mg PO BID 09/10/19 [History] Metformin HCl 500 mg [Glucophage 500 MG] 500 mg PO BID 09/10/19 [History] Simvastatin 20Mg [Zocor 20Mg] 1 tab PO HS 11/26/19 [History] ALPRAZolam [Alprazolam] 1 mg PO TID 12/30/19 [History] Albuterol Sulfate 1 neb IH TID PRN PRN 03/26/20 [History] Metronidazole 500 mg [Flagyl 500 MG] 500 mg PO TID 04/02/20 [History] Hx Tetanus, Diphtheria Vaccination/Date Given: No Hx Influenza Vaccination/Date Given: No Hx Pneumococcal Vaccination/Date Given: No Immunizations Up to Date: Yes Travel Risk - International Travel Have you traveled outside of the country in past 3 weeks: No - Coronavirus Screening Are you exhibiting any of the following symptoms?: No Close contact with a COVID-19 positive Pt in past 14-21 Days: No - Review of Systems Constitutional: No Fever, No Chills Eyes: No Symptoms Ears, Nose, & Throat: No Symptoms Respiratory: No Cough, No Dyspnea Cardiac: No Chest Pain, No Edema, No Syncope Abdominal/Gastrointestinal: No Abdominal Pain, No Nausea, No Vomiting, No Diarrhea Genitourinary Symptoms: No Dysuria Musculoskeletal: No Back Pain, No Neck Pain Skin: No Rash Neurological: No Dizziness, No Focal Weakness, No Sensory Changes Psychological: No Symptoms Endocrine: No Symptoms All Other Systems: Reviewed and Negative - Past Medical History Pertinent Past Medical History: Yes Neurological History: No Pertinent History ENT History: No Pertinent History Cardiac History: Hypertension Respiratory History: Bronchitis, Pneumonia Endocrine Medical History: Diabetes Type II Musculoskeletal History: Rheumatoid Arthritis GI Medical History: No Pertinent History History: No Pertinent History Psycho-Social History: Anxiety, Depression, Other Male Reproductive Disorders: No Pertinent History Other Medical History: PTSD, - Past Surgical History Past Surgical History: Yes Neuro Surgical History: No Pertinent History Cardiac: No Pertinent History Respiratory: No Pertinent History Gastrointestinal: No Pertinent History Genitourinary: No Pertinent History Musculoskeletal: Orthopedic Surgery Male Surgical History: No Pertinent History Other Surgical History: Right knee surgery and neck surgery. cyst off tailbone - Social History Smoking Status: Current every day smoker How long have you smoked: years Exposure to second hand smoke: Yes Drug Use: marijuana Patient Lives Alone: Yes - Nursing Vital Signs Nursing Vital Signs: Initial Vital Signs Temperature 98.2 F 04/30/20 13:23 Pulse Rate 89 04/30/20 13:23 Respiratory Rate 22 04/30/20 13:23 Blood Pressure 137/78 04/30/20 13:23 O2 Sat by Pulse Oximetry 97 04/30/20 13:23 Pain Scale Pain Intensity 0 - Physical Exam General Appearance: no apparent distress, alert Eye Exam: PERRL/EOMI, eyes nml inspection Ears, Nose, Throat Exam: normal ENT inspection, TMs normal, pharynx normal, moist mucous membranes Neck Exam: normal inspection, non-tender, supple, full range of motion Respiratory Exam: normal breath sounds, lungs clear, No respiratory distress Cardiovascular Exam: regular rate/rhythm, normal heart sounds, normal peripheral pulses Gastrointestinal/Abdomen Exam: soft, normal bowel sounds, No tenderness, No mass Rectal Exam: other (Well-healing, excised pilonidal cyst with clean wound margins.) Back Exam: normal inspection, normal range of motion, No CVA tenderness, No vertebral tenderness Extremity Exam: normal inspection, normal range of motion, pelvis stable Neurologic Exam: alert, 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, cooperative, normal mood/affect, nml cereb ellar function, nml station & gait, sensation nml, No motor deficits Skin Exam: normal color, warm, dry, No rash Lymphatic Exam: No adenopathy SpO2: 97 Ordered Tests: Active Orders 24 hr Category Date Time Status EKG-ER Only STAT Care 04/30/20 13:41 Active ACETAMINOPHEN Stat Lab 04/30/20 13:41 Completed CBC W DIFF Stat Lab 04/30/20 13:55 Completed CMP Stat Lab 04/30/20 13:41 Completed ETHYL ALCOHOL Stat Lab 04/30/20 13:41 Completed SALICYLATE Stat Lab 04/30/20 13:41 Completed UA W/RFX UR CULTURE Stat Lab 04/30/20 Completed Urine Triage Profile Stat Lab 04/30/20 13:56 Completed Lab/Rad Data: Laboratory Result Diagrams 04/30/20 13:55 04/30/20 13:41 Laboratory Results 04/30/20 04/30/20 04/30/20 Range/Units Unknown 13:56 13:55 WBC 13.5 H (4.0-10.5) K/mm3 RBC 5.55 (4.1-5.6) M/mm3 Hgb 17.5 (12.5-18.0) gm/dl Hct 51.2 H (42-50) % MCV 92.3 (78-100) fl MCH 31.5 (26-32) pg MCHC 34.2 (32-36) g/dl RDW 13.0 (11.5-14.0) % Plt Count 255 (150-450) K/mm3 MPV 11.0 (7.5-11.0) fl Gran % 60.0 (36.0-66.0) % Eos # (Auto) 0.35 (0-0.5) Absolute Lymphs (auto) 3.67 (1.0-4.6) Absolute Monos (auto) 1.25 (0.0-1.3) Lymphocytes % 27.2 (24.0-44.0) % Monocytes % 9.3 (0.0-12.0) % Eosinophils % 2.6 (0.00-5.0) % Basophils % 0.9 (0.0-0.4) % Absolute Granulocytes 8.11 H (1.4-6.9) Basophils # 0.12 (0-0.4) Sodium (137-145) mmol/L Potassium (3.5-5.1) mmol/L Chloride (98-107) mmol/L Carbon Dioxide (22-30) mmol/L Anion Gap (5-15) MEQ/L BUN (9-20) mg/dL Creatinine (0.66-1.25) mg/dL Estimated GFR ML/MIN Glucose (74-106) mg/dL Calcium (8.4-10.2) mg/dL Total Bilirubin (0.2-1.3) mg/dL AST (17-59) U/L ALT (0-50) U/L Alkaline Phosphatase (38-126) U/L Serum Total Protein (6.3-8.2) g/dL Albumin (3.5-5.0) g/dL Urine Color YELLOW (YELLOW) Urine Appearance CLEAR (CLEAR) Urine pH 5.0 (5-6) Ur Specific [place] 1.005 (1.005-1.025) Urine Protein NEGATIVE (Negative) Urine Ketones NEGATIVE (NEGATIVE) Urine Blood NEGATIVE (0-5) Hernán/ul Urine Nitrite NEGATIVE (NEGATIVE) Urine Bilirubin NEGATIVE (NEGATIVE) Urine Urobilinogen NEGATIVE (0-1) mg/dL Ur Leukocyte Esterase TRACE (NEGATIVE) Urine WBC (Auto) NONE (0-5) /HPF Urine RBC (Auto) NONE (0-2) /HPF U Epithel Cells (Auto) NONE (FEW) /HPF Urine Bacteria (Auto) NONE (NEGATIVE) /HPF Urine Culture Reflexed NO (NO) Urine Glucose NEGATIVE (NEGATIVE) mg/dL Salicylates (2-20) mg/dL Urine Opiates Level NEGATIVE (NEGATIVE) Ur Methadone NEGATIVE (NEGATIVE) Acetaminophen (10-30) ug/ml Urine Barbiturates NEGATIVE (NEGATIVE) Ur Phencyclidine (PCP) NEGATIVE (NEGATIVE) Urine Amphetamine NEGATIVE (NEGATIVE) U Benzodiazepine Level POSITIVE (NEGATIVE) Urine Cocaine NEGATIVE (NEGATIVE) Urine Marijuana (THC) NEGATIVE (NEGATIVE) Ethyl Alcohol (0-10) mg/dL 04/30/20 Range/Units 13:41 WBC (4.0-10.5) K/mm3 RBC (4.1-5.6) M/mm3 Hgb (12.5-18.0) gm/dl Hct (42-50) % MCV (78-100) fl MCH (26-32) pg MCHC (32-36) g/dl RDW (11.5-14.0) % Plt Count (150-450) K/mm3 MPV (7.5-11.0) fl Gran % (36.0-66.0) % Eos # (Auto) (0-0.5) Absolute Lymphs (auto) (1.0-4.6) Absolute Monos (auto) (0.0-1.3) Lymphocytes % (24.0-44.0) % Monocytes % (0.0-12.0) % Eosinophils % (0.00-5.0) % Basophils % (0.0-0.4) % Absolute Granulocytes (1.4-6.9) Basophils # (0-0.4) Sodium 138 (137-145) mmol/L Potassium 4.2 (3.5-5.1) mmol/L Chloride 104 (98-107) mmol/L Carbon Dioxide 25 (22-30) mmol/L Anion Gap 13.7 (5-15) MEQ/L BUN 9 (9-20) mg/dL Creatinine 0.84 (0.66-1.25) mg/dL Estimated GFR > 60.0 ML/MIN Glucose 102 (74-106) mg/dL Calcium 9.0 (8.4-10.2) mg/dL Total Bilirubin 0.60 (0.2-1.3) mg/dL AST 83 H (17-59) U/L ALT 106 H (0-50) U/L Alkaline Phosphatase 83 (38-126) U/L Serum Total Protein 7.5 (6.3-8.2) g/dL Albumin 4.2 (3.5-5.0) g/dL Urine Color (YELLOW) Urine Appearance (CLEAR) Urine pH (5-6) Ur Specific [place] (1.005-1.025) Urine Protein (Negative) Urine Ketones (NEGATIVE) Urine Blood (0-5) Hernán/ul Urine Nitrite (NEGATIVE) Urine Bilirubin (NEGATIVE) Urine Urobilinogen (0-1) mg/dL Ur Leukocyte Esterase (NEGATIVE) Urine WBC (Auto) (0-5) /HPF Urine RBC (Auto) (0-2) /HPF U Epithel Cells (Auto) (FEW) /HPF Urine Bacteria (Auto) (NEGATIVE) /HPF Urine Culture Reflexed (NO) Urine Glucose (NEGATIVE) mg/dL Salicylates 1.0 L (2-20) mg/dL Urine Opiates Level (NEGATIVE) Ur Methadone (NEGATIVE) Acetaminophen < 10 L (10-30) ug/ml Urine Barbiturates (NEGATIVE) Ur Phencyclidine (PCP) (NEGATIVE) Urine Amphetamine (NEGATIVE) U Benzodiazepine Level (NEGATIVE) Urine Cocaine (NEGATIVE) Urine Marijuana (THC) (NEGATIVE) Ethyl Alcohol < 10 (0-10) mg/dL - Progress Progress: improved Progress Note: 04/30/20 13:54 We will do a psychiatric rule out, have PT evaluate his wound, have [facility] come see the patient. 04/30/20 16:05 Medical clearance. PT did evaluate the wound. Placed a wet-to-dry dressing. States that should be good for 72 hours. [facility] saw the patient. They will transfer patient for inpatient psychiatric care at this point in time. Patient will have outpatient follow-up wound exam. 04/30/20 18:38 Patient did state he does not want to go to [facility]. He became in voluntary during this stay. Therefore, we had to place in a immediate attention on the patient. Court order signed. After this, the patient became more compliant. - Departure Departure Disposition: Transfer Clinical Impression: Suicidal ideation Condition: Stable Critical Care Time: No Referrals: DAYSI ALLISON [Primary Care Provider] - Instructions: Bipolar Disorder (DC)
[2020-04-30 14:04] LABS: Absolute Neutrophil Ct (ANC) 8.11 (1.4-6.9); BASOPHIL % 0.9 % (0.0-0.4); Basophil (Absolute #) 0.12 (0-0.4); Eosinophil % 2.6 % (0.00-5.0); Eosinophil (Absolute #) 0.35 (0-0.5); Hematocrit 51.2 % (42-50); Hemoglobin 17.5 gm/dl (12.5-18.0); Lymphocyte (Absolute #) 3.67 (1.0-4.6); Lymphocytes % 27.2 % (24.0-44.0); Mean Cell Volume 92.3 fl (78-100); Mean Corpuscular Hemoglobin 31.5 pg (26-32); Mean Corpuscular Hgb Concent. 34.2 g/dl (32-36); Monocyte (Absolute #) 1.25 (0.0-1.3); Monocytes % 9.3 % (0.0-12.0); Platelet Count 255 K/mm3 (150-450); Red Blood Count 5.55 M/mm3 (4.1-5.6); White Blood Count 13.5 K/mm3 (4.0-10.5)
[2020-04-30 14:08] LABS: Appearance CLEAR (CLEAR); Bilirubin NEGATIVE (NEGATIVE); Blood NEGATIVE Ery/ul (0-5); Glucose NEGATIVE (NEGATIVE); Ketones NEGATIVE (NEGATIVE); Leukocyte Esterase TRACE (NEGATIVE); Nitrite NEGATIVE (NEGATIVE); Protein,Urine Dip NEGATIVE (Negative); Specific Gravity 1.005 (1.005-1.025); Urobilinogen NEGATIVE mg/dL (0-1)
[2020-04-30 14:14] LABS: ALBUMIN 4.2 g/dL (3.5-5.0); ALKALINE PHOSPHATASE 83 U/L (38-126); ANION GAP 13.7 MEQ/L (5-15); BLOOD UREA NITROGEN 9 mg/dL (9-20); CHLORIDE 104 mmol/L (98-107); Carbon Dioxide 25 mmol/L (22-30); Creatinine 1 0.84 mg/dL (0.66-1.25); Glucose 102 mg/dL (74-106); Potassium 4.2 mmol/L (3.5-5.1); SGOT/AST 83 U/L (17-59); SGPT/ALT 106 U/L (0-50); SODIUM 138 mmol/L (137-145); Total Protein 7.5 g/dL (6.3-8.2)
[2020-04-30 14:19] LABS: ACETAMINOPHEN < 10 ug/ml (10-30); ETHYL ALCOHOL < 10 mg/dL (0-10)
[2020-04-30 14:23] LABS: Amphetamine,Urine NEGATIVE (NEGATIVE); Barbiturate,Urine NEGATIVE (NEGATIVE); Benzodiazepine,Urine POSITIVE (NEGATIVE); Cocaine,Urine NEGATIVE (NEGATIVE); Methadone,Urine NEGATIVE (NEGATIVE); Opiate,Urine NEGATIVE (NEGATIVE); PCP,Urine NEGATIVE (NEGATIVE); THC,Urine NEGATIVE (NEGATIVE)
[2020-04-30 17:48] VITALS: BP 104/75; PULSE 88
[2020-04-30 18:39] VITALS: O2SAT 97
== END 2020-04-30 18:45 | disposition short-term general hospital (02) ==
LOC: ED 13:11
DX: R45.851 Suicidal ideations (principal); F20.9 Schizophrenia, unspecified; N28.89 Other specified disorders of kidney and ureter; Z79.899 Other long term (current) drug therapy; E11.9 Type 2 diabetes mellitus without complications; M06.9 Rheumatoid arthritis, unspecified; F41.9 Anxiety disorder, unspecified; Z72.0 Tobacco use
CPT/HCPCS: 36415; 80053; 80307; 81001; 85025; 93005; 97161; 99285; G0481; 90791; Q3014; G0480

== ENCOUNTER 2021-08-13 20:07 | Emergency (ER) | payer OTHER ==
--- NOTE | 2021-08-13 20:10 | ERPHSYRPT ---
- History of Present Illness Time Seen by Provider: 08/13/21 20:10 Source: patient, family Exam Limitations: no limitations Physician History: This is a 46-year-old obese white male who has a history of diabetes, hypertension, bipolar disorder, schizoaffective disorder, anxiety disorder, depression, and presents with "I just cannot walk anymore". He states he just cannot do this anymore. I asked him if he was suicidal he said no. I asked if he is homicidal he has had no. He states he is taking all his medication as prescribed. He states that he has had holes drilled in his head in the past. I asked "as a surgical procedure?" He said no and I said I asked him, "who did this?" The patient stated his family, friends and the government. He states he does not take any medications for any psychiatric illnesses anymore. His nurse practitioner is José Miguel Torres. Although the patient states he can no longer walk he did walk to the police department so that they could contact an ambulance to bring him to the hospital. Timing/Duration: worse, other Modifying Factors: Improves With: movement Associated Symptoms: weakness, other (Hurts all over) Allergies/Adverse Reactions: pregabalin [From Lyrica] Allergy (Verified 08/13/21 20:08) pt reports unknown reaction but confirms allergy quetiapine [From Seroquel] Allergy (Verified 08/13/21 20:08) pt reports this medication caused him to "black out" varenicline [From Chantix] Adverse Reaction (Verified 08/13/21 20:08) Home Medications: Lisinopril 10 mg [Zestril 10 MG] 1 tab PO DAILY 06/27/19 [History] Carvedilol [Coreg] 25 mg PO BID 09/10/19 [History] Simvastatin 20Mg [Zocor 20Mg] 1 tab PO HS 11/26/19 [History] Hx Tetanus, Diphtheria Vaccination/Date Given: No Hx Influenza Vaccination/Date Given: No Hx Pneumococcal Vaccination/Date Given: No Travel Risk - International Travel Have you traveled outside of the country in past 3 weeks: No - Coronavirus Screening Are you exhibiting any of the following symptoms?: No Close contact with a COVID-19 positive Pt in past 14-21 Days: No - Review of Systems Constitutional: Weakness Eyes: No Symptoms Ears, Nose, & Throat: No Symptoms Respiratory: No Symptoms Cardiac: No Symptoms Abdominal/Gastrointestinal: No Symptoms Genitourinary Symptoms: No Symptoms Musculoskeletal: Other (Cannot walk) Skin: No Symptoms Neurological: Gait Changes Psychological: Depression, Other (Paranoid behavior) Endocrine: No Symptoms Hematologic/Lymphatic: No Symptoms Immunological/Allergic: No Symptoms All Other Systems: Reviewed and Negative - Past Medical History Pertinent Past Medical History: Yes Neurological History: No Pertinent History ENT History: No Pertinent History Cardiac History: Hypertension Respiratory History: Bronchitis, Pneumonia Endocrine Medical History: Diabetes Type II Musculoskeletal History: Rheumatoid Arthritis GI Medical History: No Pertinent History History: No Pertinent History Psycho-Social History: Anxiety, Depression, Other Male Reproductive Disorders: No Pertinent History Other Medical History: PTSD, - Past Surgical History Past Surgical History: Yes Neuro Surgical History: No Pertinent History Cardiac: No Pertinent History Respiratory: No Pertinent History Gastrointestinal: No Pertinent History Genitourinary: No Pertinent History Musculoskeletal: Orthopedic Surgery Male Surgical History: No Pertinent History Other Surgical History: Right knee surgery and neck surgery. cyst off tailbone - Social History Smoking Status: Current every day smoker How long have you smoked: years Exposure to second hand smoke: Yes Drug Use: marijuana Patient Lives Alone: Yes - Nursing Vital Signs Nursing Vital Signs: Initial Vital Signs Temperature 97.9 F 08/13/21 20:07 Pulse Rate 74 08/13/21 20:07 Respiratory Rate 16 08/13/21 20:07 Blood Pressure 149/95 08/13/21 20:07 O2 Sat by Pulse Oximetry 99 08/13/21 20:07 Pain Scale Pain Intensity 8 - Physical Exam General Appearance: no apparent distress, alert, anxiety, obese Eye Exam: PERRL/EOMI, eyes nml inspection Ears, Nose, Throat Exam: normal ENT inspection, moist mucous membranes Neck Exam: normal inspection, non-tender, supple, full range of motion Respiratory Exam: normal breath sounds, lungs clear, airway intact, No chest tenderness, No respiratory distress Cardiovascular Exam: regular rate/rhythm, normal heart sounds, normal peripheral pulses Gastrointestinal/Abdomen Exam: soft, normal bowel sounds, No tenderness Rectal Exam: not done Back Exam: normal inspection, normal range of motion, No CVA tenderness, No vertebral tenderness Extremity Exam: normal inspection, normal range of motion, pelvis stable Neurologic Exam: alert, 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, cooperative, private chef II-XII nml as tested, normal mood/affect, nml cerebellar function, nml station & gait, sensation nml Skin Exam: normal color, warm, dry Lymphatic Exam: No adenopathy SpO2 Interpretation: normal O2 Delivery: Room Air - Course Nursing assessment & vital signs reviewed: Yes EKG Interpreted by Me: RATE (74), Sinus Rhythm, NORMAL AXIS, NORMAL INTERVALS, NORMAL QRS, NORMAL ST-T, Other (No acute ischemic changes. No change from the comparison EKG dated 04/30/2020) Ordered Tests: Active Orders 24 hr Category Date Time Status Clean Catch Urine Specimen STAT Care 08/13/21 20:33 Active EKG-ER Only STAT Care 08/13/21 20:33 Active HEAD WITHOUT CONTRAST [CT] Stat Exams 08/13/21 20:34 Taken ACETAMINOPHEN Stat Lab 08/13/21 20:47 Completed CBC W DIFF Stat Lab 08/13/21 20:47 Completed CMP Stat Lab 08/13/21 20:47 Completed ETHYL ALCOHOL Stat Lab 08/13/21 20:47 Completed SALICYLATE Stat Lab 08/13/21 20:47 Completed T4 (Thyroxine) Stat Lab 08/13/21 20:30 Completed TSH [TSH, 3RD Generation] Stat Lab 08/13/21 20:30 Completed UA W/RFX UR CULTURE Stat Lab 08/13/21 20:38 Completed Urine Triage Profile Stat Lab 08/13/21 20:38 Completed Lab/Rad Data: Laboratory Result Diagrams 08/13/21 20:47 08/13/21 20:47 Laboratory Results 08/13/21 08/13/21 08/13/21 Range/Units 20:47 20:47 20:38 WBC 12.2 H (4.0-10.5) K/mm3 RBC 5.24 (4.1-5.6) M/mm3 Hgb 16.2 (12.5-18.0) gm/dl Hct 47.3 (42-50) % MCV 90.3 (78-100) fl MCH 30.9 (26-32) pg MCHC 34.2 (32-36) g/dl RDW 13.0 (11.5-14.0) % Plt Count 264 (150-450) K/mm3 MPV 11.1 H (7.5-11.0) fl Gran % 54.3 (36.0-66.0) % Eos # (Auto) 0.38 (0-0.5) Absolute Lymphs (auto) 4.05 (1.0-4.6) Absolute Monos (auto) 1.04 (0.0-1.3) Lymphocytes % 33.3 (24.0-44.0) % Monocytes % 8.6 (0.0-12.0) % Eosinophils % 3.1 (0.00-5.0) % Basophils % 0.7 (0.0-0.4) % Absolute Granulocytes 6.60 (1.4-6.9) Basophils # 0.08 (0-0.4) Sodium 139 (137-145) mmol/L Potassium 3.5 (3.5-5.1) mmol/L Chloride 104 (98-107) mmol/L Carbon Dioxide 26 (22-30) mmol/L Anion Gap 12.5 (5-15) MEQ/L BUN 9 (9-20) mg/dL Creatinine 0.75 (0.66-1.25) mg/dL Estimated GFR > 60.0 ML/MIN Glucose 96 (74-106) mg/dL Calcium 9.4 (8.4-10.2) mg/dL Total Bilirubin 0.50 (0.2-1.3) mg/dL AST 44 (17-59) U/L ALT 62 H (0-50) U/L Alkaline Phosphatase 98 (38-126) U/L Serum Total Protein 7.2 (6.3-8.2) g/dL Albumin 4.2 (3.5-5.0) g/dL Thyroxine (T4) (5.53-10.96) ug/dL TSH 3rd Generation (0.47-4.68) mIU/L Urine Color (YELLOW) Urine Appearance (CLEAR) Urine pH (5-6) Ur Specific [place] (1.005-1.025) Urine Protein (Negative) Urine Ketones (NEGATIVE) Urine Blood (0-5) Hernán/ul Urine Nitrite (NEGATIVE) Urine Bilirubin (NEGATIVE) Urine Urobilinogen (0-1) mg/dL Ur Leukocyte Esterase (NEGATIVE) Urine WBC (Auto) (0-5) /HPF Urine RBC (Auto) (0-2) /HPF U Epithel Cells (Auto) (FEW) /HPF Urine Bacteria (Auto) (NEGATIVE) /HPF Urine Culture Reflexed (NO) Urine Glucose (NEGATIVE) mg/dL Salicylates < 1.0 L (2-20) mg/dL Urine Opiates Level NEGATIVE (NEGATIVE) Ur Methadone NEGATIVE (NEGATIVE) Acetaminophen < 10 L (10-30) ug/ml Urine Barbiturates NEGATIVE (NEGATIVE) Ur Phencyclidine (PCP) NEGATIVE (NEGATIVE) Urine Amphetamine NEGATIVE (NEGATIVE) U Benzodiazepine Level NEGATIVE (NEGATIVE) Urine Cocaine NEGATIVE (NEGATIVE) Urine Marijuana (THC) NEGATIVE (NEGATIVE) Ethyl Alcohol < 10 (0-10) mg/dL 08/13/21 08/13/21 Range/Units 20:38 20:30 WBC (4.0-10.5) K/mm3 RBC (4.1-5.6) M/mm3 Hgb (12.5-18.0) gm/dl Hct (42-50) % MCV (78-100) fl MCH (26-32) pg MCHC (32-36) g/dl RDW (11.5-14.0) % Plt Count (150-450) K/mm3 MPV (7.5-11.0) fl Gran % (36.0-66.0) % Eos # (Auto) (0-0.5) Absolute Lymphs (auto) (1.0-4.6) Absolute Monos (auto) (0.0-1.3) Lymphocytes % (24.0-44.0) % Monocytes % (0.0-12.0) % Eosinophils % (0.00-5.0) % Basophils % (0.0-0.4) % Absolute Granulocytes (1.4-6.9) Basophils # (0-0.4) Sodium (137-145) mmol/L Potassium (3.5-5.1) mmol/L Chloride (98-107) mmol/L Carbon Dioxide (22-30) mmol/L Anion Gap (5-15) MEQ/L BUN (9-20) mg/dL Creatinine (0.66-1.25) mg/dL Estimated GFR ML/MIN Glucose (74-106) mg/dL Calcium (8.4-10.2) mg/dL Total Bilirubin (0.2-1.3) mg/dL AST (17-59) U/L ALT (0-50) U/L Alkaline Phosphatase (38-126) U/L Serum Total Protein (6.3-8.2) g/dL Albumin (3.5-5.0) g/dL Thyroxine (T4) 13.7 H (5.53-10.96) ug/dL TSH 3rd Generation 2.860 (0.47-4.68) mIU/L Urine Color STRAW (YELLOW) Urine Appearance CLEAR (CLEAR) Urine pH 6.0 (5-6) Ur Specific [place] 1.002 (1.005-1.025) Urine Protein NEGATIVE (Negative) Urine Ketones NEGATIVE (NEGATIVE) Urine Blood NEGATIVE (0-5) Hernán/ul Urine Nitrite NEGATIVE (NEGATIVE) Urine Bilirubin NEGATIVE (NEGATIVE) Urine Urobilinogen NEGATIVE (0-1) mg/dL Ur Leukocyte Esterase NEGATIVE (NEGATIVE) Urine WBC (Auto) NONE SEEN (0-5) /HPF Urine RBC (Auto) NONE SEEN (0-2) /HPF U Epithel Cells (Auto) NONE (FEW) /HPF Urine Bacteria (Auto) NONE SEEN (NEGATIVE) /HPF Urine Culture Reflexed NO (NO) Urine Glucose NEGATIVE (NEGATIVE) mg/dL Salicylates (2-20) mg/dL Urine Opiates Level (NEGATIVE) Ur Methadone (NEGATIVE) Acetaminophen (10-30) ug/ml Urine Barbiturates (NEGATIVE) Ur Phencyclidine (PCP) (NEGATIVE) Urine Amphetamine (NEGATIVE) U Benzodiazepine Level (NEGATIVE) Urine Cocaine (NEGATIVE) Urine Marijuana (THC) (NEGATIVE) Ethyl Alcohol (0-10) mg/dL - Progress Progress: unchanged Progress Note: 08/13/21 22:15 CAT scan of the head without contrast shows no acute intracranial abnormality. 08/13/21 22:27 Medical decision making: This patient was reexamined at the time I was to discharge him. I also retook his history and he stated he walked quite a distance from his house to the police department in order to obtain an ambulance ride to the hospital. Yet he claims he cannot walk. He is work-up does not show anything acute. He again states he is not suicidal homicidal. He states he does not have a ride home. He again repeated that he cannot do this anymore. He states he cannot care for himself yet he lives with someone. I offered him to be evaluated by a psychiatric facility or to have a telepsych evaluation p erformed. Patient became very angry and upset and was cursing at me. I will have the nurse go into patient room to determine what his wishes are. At this point, he can be discharged to home. 08/13/21 22:30 Counseled pt/family regarding: lab results, diagnosis, need for follow-up, rad results - Departure Departure Disposition: Home Clinical Impression: Generalized weakness, Paranoid behavior Condition: Stable Critical Care Time: No Referrals: DAYSI ALLISON [Primary Care Provider] - Additional Instructions: Take all your medication as prescribed. Call your primary care doctor on 08/15/2021, for further evaluation and management
[2021-08-13 20:43] LABS: Appearance CLEAR (CLEAR); Bilirubin NEGATIVE (NEGATIVE); Blood NEGATIVE Ery/ul (0-5); Glucose NEGATIVE (NEGATIVE); Ketones NEGATIVE (NEGATIVE); Leukocyte Esterase NEGATIVE (NEGATIVE); Nitrite NEGATIVE (NEGATIVE); Protein,Urine Dip NEGATIVE (Negative); Specific Gravity 1.002 (1.005-1.025); Urobilinogen NEGATIVE mg/dL (0-1)
[2021-08-13 20:50] LABS: Bacteria NONE SEEN /HPF (NEGATIVE); RBC NONE SEEN /HPF (0-2); WBC NONE SEEN /HPF (0-5)
[2021-08-13 20:52] LABS: BASOPHIL % 0.7 % (0.0-0.4); Basophil (Absolute #) 0.08 (0-0.4); Eosinophil % 3.1 % (0.00-5.0); Eosinophil (Absolute #) 0.38 (0-0.5); Hematocrit 47.3 % (42-50); Hemoglobin 16.2 gm/dl (12.5-18.0); Lymphocyte (Absolute #) 4.05 (1.0-4.6); Lymphocytes % 33.3 % (24.0-44.0); Mean Cell Volume 90.3 fl (78-100); Mean Corpuscular Hemoglobin 30.9 pg (26-32); Mean Corpuscular Hgb Concent. 34.2 g/dl (32-36); Mean Platelet Volume 11.1 fl (7.5-11.0); Monocyte (Absolute #) 1.04 (0.0-1.3); Monocytes % 8.6 % (0.0-12.0); Neutrophil % 54.3 % (36.0-66.0); Platelet Count 264 K/mm3 (150-450); Red Blood Count 5.24 M/mm3 (4.1-5.6); White Blood Count 12.2 K/mm3 (4.0-10.5)
[2021-08-13 20:57] LABS: Amphetamine,Urine NEGATIVE (NEGATIVE); Barbiturate,Urine NEGATIVE (NEGATIVE); Benzodiazepine,Urine NEGATIVE (NEGATIVE); Cocaine,Urine NEGATIVE (NEGATIVE); Opiate,Urine NEGATIVE (NEGATIVE); PCP,Urine NEGATIVE (NEGATIVE); THC,Urine NEGATIVE (NEGATIVE)
[2021-08-13 20:59] LABS: Methadone,Urine NEGATIVE (NEGATIVE)
[2021-08-13 21:03] LABS: ACETAMINOPHEN < 10 ug/ml (10-30); ALBUMIN 4.2 g/dL (3.5-5.0); ALKALINE PHOSPHATASE 98 U/L (38-126); ANION GAP 12.5 MEQ/L (5-15); BLOOD UREA NITROGEN 9 mg/dL (9-20); CHLORIDE 104 mmol/L (98-107); Calcium 9.4 mg/dL (8.4-10.2); Carbon Dioxide 26 mmol/L (22-30); Creatinine 1 0.75 mg/dL (0.66-1.25); EST GLOMERULAR FILTRATION RATE > 60.0 ML/MIN; ETHYL ALCOHOL < 10 mg/dL (0-10); Glucose 96 mg/dL (74-106); Potassium 3.5 mmol/L (3.5-5.1); SALICYLATE < 1.0 mg/dL (2-20); SGOT/AST 44 U/L (17-59); SGPT/ALT 62 U/L (0-50); SODIUM 139 mmol/L (137-145); Total Protein 7.2 g/dL (6.3-8.2)
[2021-08-13 21:47] LABS: T4 (Thyroxine) 13.7 ug/dL (5.53-10.96); TSH, 3RD Generation 2.86 mIU/L (0.47-4.68)
[2021-08-13 23:38] VITALS: BP 126/86; PULSE 84; O2SAT 95
--- NOTE | 2021-08-14 07:47 | XRAY ---
Indication: Difficulty with ambulation. Multiple contiguous axial images obtained through the head without contrast. Comparison: October 03, 2019. Age-appropriate global atrophy. No acute intracranial hemorrhage, abnormal extra-axial fluid collection, or mass effect. Fourth ventricle is midline without hydrocephalus. Wallace-white matter differentiation preserved. Bony calvarium intact. Minimal mucosal thickening right maxillary sinus. Remaining visualized paranasal sinuses and mastoid air cells are clear. Impression: 1. Continued negative CT head without contrast exam. 2. New minimal paranasal sinus disease. Comment: Preliminary interpretation made by [facility]. No critical discrepancy.
== END 2021-08-13 23:55 | disposition home or self-care (01) ==
LOC: ED 20:07
DX: R53.1 Weakness (principal); F60.0 Paranoid personality disorder
CPT/HCPCS: 36415; 70450; 80053; 80307; 81001; 84436; 84443; 85025; 93005; 99284; G0480

== ENCOUNTER 2021-11-06 16:14 | Emergency (ER) | payer OTHER ==
--- NOTE | 2021-11-06 16:16 | ERPHSYRPT ---
- History of Present Illness Time Seen by Provider: 11/06/21 16:15 Historian: patient Exam Limitations: no limitations Physician History: This is a 46-year-old obese gentleman who complains of left flank pain that has been present for at least a week. Is worsening. He is sweating. He has no chest pain. He has no shortness of breath. He denies fall or trauma. He has not had any diarrhea. He has no known history of ureteral stones. Patient has a history of bipolar disorder and schizoaffective disorder but he states he is not taking any medications for this. He does have a history of hypertension and elevated cholesterol as well. He also has a history of diabetes and PTSD. Timing/Duration: week(s) (1) Quality: sharpness, stabbing Abdominal Pain Onset Location: flank (Left) Pain Radiation: LLQ Severity of Pain-Max: moderate Severity of Pain-Current: moderate Modifying Factors: Improves With: nothing. Worsens With: vomiting Associated Symptoms: diaphoresis, No chest pain, No diarrhea, No fever/chills, No nausea, No shortness of breath, No vomiting Previous symptoms: no prior history Allergies/Adverse Reactions: pregabalin [From Lyrica] Allergy (Verified 11/06/21 16:23) pt reports unknown reaction but confirms allergy quetiapine [From Seroquel] Allergy (Verified 11/06/21 16:23) pt reports this medication caused him to "black out" varenicline [From Chantix] Adverse Reaction (Verified 11/06/21 16:23) Home Medications: Lisinopril 10 mg [Zestril 10 MG] 1 tab PO DAILY 06/27/19 [History] Carvedilol [Coreg] 25 mg PO BID 09/10/19 [History] Simvastatin 20Mg [Zocor 20Mg] 1 tab PO HS 11/26/19 [History] Lorazepam [Ativan] 1 mg PO DAILY 11/06/21 [History] Lurasidone HCl [Latuda] 80 mg PO DAILY 11/06/21 [History] Hx Tetanus, Diphtheria Vaccination/Date Given: No Hx Influenza Vaccination/Date Given: No Hx Pneumococcal Vaccination/Date Given: No Travel Risk - International Travel Have you traveled outside of the country in past 3 weeks: No - Coronavirus Screening Are you exhibiting any of the following symptoms?: No Close contact with a COVID-19 positive Pt in past 14-21 Days: No - Vaccine Status Have you recieved a Covid-19 vaccination: Yes Director General: Unknown - Vaccination Dates Dates if Unknown: unknown - Review of Systems Constitutional: No Symptoms Eyes: No Symptoms Ears, Nose, & Throat: No Symptoms Respiratory: No Symptoms Cardiac: No Symptoms Abdominal/Gastrointestinal: Abdominal Pain (Flank and left lower quadrant pain) Genitourinary Symptoms: Flank Pain (Left side) Musculoskeletal: No Symptoms Skin: No Symptoms Neurological: No Symptoms Psychological: No Symptoms Endocrine: No Symptoms Hematologic/Lymphatic: No Symptoms Immunological/Allergic: No Symptoms All Other Systems: Reviewed and Negative - Past Medical History Pertinent Past Medical History: Yes Neurological History: No Pertinent History ENT History: No Pertinent History Cardiac History: Hypertension Respiratory History: Bronchitis, Pneumonia Endocrine Medical History: Diabetes Type II Musculoskeletal History: Rheumatoid Arthritis GI Medical History: No Pertinent History History: No Pertinent History Psycho-Social History: Anxiety, Depression, Other Male Reproductive Disorders: No Pertinent History Other Medical History: PTSD, - Past Surgical History Past Surgical History: Yes Neuro Surgical History: No Pertinent History Cardiac: No Pertinent History Respiratory: No Pertinent History Gastrointestinal: No Pertinent History Genitourinary: No Pertinent History Musculoskeletal: Orthopedic Surgery Male Surgical History: No Pertinent History Other Surgical History: Right knee surgery and neck surgery. cyst off tailbone - Social History Smoking Status: Current every day smoker How long have you smoked: years Exposure to second hand smoke: Yes Drug Use: marijuana Patient Lives Alone: Yes - Nursing Vital Signs Nursing Vital Signs: Initial Vital Signs Temperature 95.5 F 11/06/21 16:24 Pulse Rate 82 11/06/21 16:24 Respiratory Rate 18 11/06/21 16:24 Blood Pressure 136/93 11/06/21 16:24 O2 Sat by Pulse Oximetry 98 11/06/21 16:24 Pain Scale Pain Intensity 6 - Physical Exam General Appearance: mild distress, alert, anxiety, obese Eye Exam: PERRL/EOMI, eyes nml inspection Ears, Nose, Throat Exam: normal ENT inspection, moist mucous membranes Neck Exam: normal inspection, non-tender, supple, full range of motion Respiratory Exam: normal breath sounds, lungs clear, airway intact, No chest tenderness, No respiratory distress Cardiovascular Exam: regular rate/rhythm, normal heart sounds, normal peripheral pulses Gastrointestinal/Abdomen Exam: soft, normal bowel sounds, tenderness (Left flank and left lower quadrant), guarding, No rebound Rectal Exam: not done Back Exam: normal inspection, normal range of motion, CVA tenderness (Left side), No vertebral tenderness Extremity Exam: normal inspection, normal range of motion, pelvis stable Neurologic Exam: alert, 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, cooperative, 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 tested, nml cerebellar function, nml station & gait, sensation nml Skin Exam: normal color, warm, dry, diaphoresis Lymphatic Exam: No adenopathy SpO2 Interpretation: normal O2 Delivery: Room Air - Course Nursing assessment & vital signs reviewed: Yes Ordered Tests: Active Orders 24 hr Category Date Time Status IV Insertion STAT Care 11/06/21 16:41 Active ABDOMEN AND PELVIS W/0 CONTRAS [CT] Stat Exams 11/06/21 17:03 Taken AMYLASE Stat Lab 11/06/21 17:06 Completed CBC W DIFF Stat Lab 11/06/21 17:06 Completed CMP Stat Lab 11/06/21 17:06 Completed LIPASE Stat Lab 11/06/21 17:06 Completed Lactic Acid Stat Lab 11/06/21 16:50 Completed Lactic Acid Stat Lab 11/06/21 18:55 Received UA W/RFX UR CULTURE Stat Lab 11/06/21 17:50 Completed Urine Triage Profile Stat Lab 11/06/21 17:50 Completed Medication Summary Discontinued Medications Generic Name Dose Route Start Last Admin Trade Name Freq PRN Reason Stop Dose Admin Hydromorphone HCl 1 mg 11/06/21 17:29 11/06/21 17:33 Hydromorphone 1 Mg/1ml Inj 1 Mg/Ml Syringe IV 11/06/21 17:30 1 mg STAT ONE Administration Hydromorphone HCl Confirm 11/06/21 17:30 Hydromorphone 1 Mg/1ml Inj 1 Mg/Ml Syringe Administered 11/06/21 17:31 Dose 1 mg .ROUTE .STK-MED ONE Sodium Chloride 1,000 mls @ 999 mls/hr 11/06/21 16:41 11/06/21 17:00 Sodium Chloride 0.9% 1000 Ml IV 11/06/21 17:41 999 mls/hr .Q1H1M STA Administration Sodium Chloride Confirm 11/06/21 16:53 Sodium Chloride 0.9% 1000 Ml Administered 11/06/21 16:54 Dose 1,000 mls @ ud .ROUTE .STK-MED ONE Ketorolac Tromethamine 30 mg 11/06/21 16:41 11/06/21 16:59 Ketorolac Tromethamine 30 Mg/Ml Inj IV 11/06/21 16:42 30 mg STAT ONE Administration Ketorolac Tromethamine Confirm 11/06/21 16:53 Ketorolac Tromethamine 30 Mg/Ml Inj Administered 11/06/21 16:54 Dose 30 mg .ROUTE .STK-MED ONE Ondansetron HCl 4 mg 11/06/21 16:41 11/06/21 17:00 Ondansetron Hcl 4 Mg/2 Ml Vial IV 11/06/21 16:42 4 mg STAT ONE Administration Ondansetron HCl Confirm 11/06/21 16:53 Ondansetron Hcl 4 Mg/2 Ml Vial Administered 11/06/21 16:54 Dose 4 mg .ROUTE .STK-MED ONE Lab/Rad Data: Laboratory Result Diagrams 11/06/21 17:06 11/06/21 17:06 Laboratory Results 11/06/21 11/06/21 11/06/21 Range/Units 17:50 17:50 17:06 WBC (4.0-10.5) K/mm3 RBC (4.1-5.6) M/mm3 Hgb (12.5-18.0) gm/dl Hct (42-50) % MCV (78-100) fl MCH (26-32) pg MCHC (32-36) g/dl RDW (11.5-14.0) % Plt Count (150-450) K/mm3 MPV (7.5-11.0) fl Gran % (36.0-66.0) % Eos # (Auto) (0-0.5) Absolute Lymphs (auto) (1.0-4.6) Absolute Monos (auto) (0.0-1.3) Lymphocytes % (24.0-44.0) % Monocytes % (0.0-12.0) % Eosinophils % (0.00-5.0) % Basophils % (0.0-0.4) % Absolute Granulocytes (1.4-6.9) Basophils # (0-0.4) Sodium 141 (137-145) mmol/L Potassium 4.0 (3.5-5.1) mmol/L Chloride 106 (98-107) mmol/L Carbon Dioxide 26 (22-30) mmol/L Anion Gap 13.6 (5-15) MEQ/L BUN 9 (9-20) mg/dL Creatinine 0.82 (0.66-1.25) mg/dL Estimated GFR > 60.0 ML/MIN Glucose 162 H (74-106) mg/dL Lactic Acid (0.4-2.0) Calcium 8.9 (8.4-10.2) mg/dL Total Bilirubin 0.40 (0.2-1.3) mg/dL AST 30 (17-59) U/L ALT 40 (0-50) U/L Alkaline Phosphatase 141 H (38-126) U/L Serum Total Protein 6.8 (6.3-8.2) g/dL Albumin 4.0 (3.5-5.0) g/dL Amylase 175 H (30-110) U/L Lipase 486 H (23-300) U/L Urine Color YELLOW (YELLOW) Urine Appearance CLEAR (CLEAR) Urine pH 7.0 (5-6) Ur Specific [place] 1.019 (1.005-1.025) Urine Protein NEGATIVE (Negative) Urine Ketones NEGATIVE (NEGATIVE) Urine Blood NEGATIVE (0-5) Hernán/ul Urine Nitrite NEGATIVE (NEGATIVE) Urine Bilirubin NEGATIVE (NEGATIVE) Urine Urobilinogen 4 (0-1) mg/dL Ur Leukocyte Esterase NEGATIVE (NEGATIVE) Urine WBC (Auto) 0-2 (0-5) /HPF Urine RBC (Auto) 0-2 (0-2) /HPF U Epithel Cells (Auto) NONE (FEW) /HPF Urine Bacteria (Auto) RARE (NEGATIVE) /HPF Urine Mucus (Auto) SLIGHT (NEGATIVE) /HPF Urine Culture Reflexed NO (NO) Urine Glucose NEGATIVE (NEGATIVE) mg/dL Urine Opiates Level NEGATIVE (NEGATIVE) Ur Methadone NEGATIVE (NEGATIVE) Urine Barbiturates NEGATIVE (NEGATIVE) Ur Phencyclidine (PCP) NEGATIVE (NEGATIVE) Urine Amphetamine NEGATIVE (NEGATIVE) U Benzodiazepine Level NEGATIVE (NEGATIVE) Urine Cocaine NEGATIVE (NEGATIVE) Urine Marijuana (THC) NEGATIVE (NEGATIVE) 11/06/21 11/06/21 Range/Units 17:06 16:50 WBC 16.3 H (4.0-10.5) K/mm3 RBC 5.33 (4.1-5.6) M/mm3 Hgb 16.6 (12.5-18.0) gm/dl Hct 49.6 (42-50) % MCV 93.1 (78-100) fl MCH 31.1 (26-32) pg MCHC 33.5 (32-36) g/dl RDW 14.7 H (11.5-14.0) % Plt Count 327 (150-450) K/mm3 MPV 10.5 (7.5-11.0) fl Gran % 68.2 H (36.0-66.0) % Eos # (Auto) 0.36 (0-0.5) Absolute Lymphs (auto) 3.83 (1.0-4.6) Absolute Monos (auto) 0.90 (0.0-1.3) Lymphocytes % 23.5 L (24.0-44.0) % Monocytes % 5.5 (0.0-12.0) % Eosinophils % 2.2 (0.00-5.0) % Basophils % 0.6 (0.0-0.4) % Absolute Granulocytes 11.13 H (1.4-6.9) Basophils # 0.09 (0-0.4) Sodium (137-145) mmol/L Potassium (3.5-5.1) mmol/L Chloride (98-107) mmol/L Carbon Dioxide (22-30) mmol/L Anion Gap (5-15) MEQ/L BUN (9-20) mg/dL Creatinine (0.66-1.25) mg/dL Estimated GFR ML/MIN Glucose (74-106) mg/dL Lactic Acid 2.5 H (0.4-2.0) Calcium (8.4-10.2) mg/dL Total Bilirubin (0.2-1.3) mg/dL AST (17-59) U/L ALT (0-50) U/L Alkaline Phosphatase (38-126) U/L Serum Total Protein (6.3-8.2) g/dL Albumin (3.5-5.0) g/dL Amylase (30-110) U/L Lipase (23-300) U/L Urine Color (YELLOW) Urine Appearance (CLEAR) Urine pH (5-6) Ur Specific [place] (1.005-1.025) Urine Protein (Negative) Urine Ketones (NEGATIVE) Urine Blood (0-5) Hernán/ul Urine Nitrite (NEGATIVE) Urine Bilirubin (NEGATIVE) Urine Urobilinogen (0-1) mg/dL Ur Leukocyte Esterase (NEGATIVE) Urine WBC (Auto) (0-5) /HPF Urine RBC (Auto) (0-2) /HPF U Epithel Cells (Auto) (FEW) /HPF Urine Bacteria (Auto) (NEGATIVE) /HPF Urine Mucus (Auto) (NEGATIVE) /HPF Urine Culture Reflexed (NO) Urine Glucose (NEGATIVE) mg/dL Urine Opiates Level (NEGATIVE) Ur Methadone (NEGATIVE) Urine Barbiturates (NEGATIVE) Ur Phencyclidine (PCP) (NEGATIVE) Urine Amphetamine (NEGATIVE) U Benzodiazepine Level (NEGATIVE) Urine Cocaine (NEGATIVE) Urine Marijuana (THC) (NEGATIVE) - Progress Progress: improved, pain not gone completely Progress Note: 11/06/21 18:20 CAT scan of the abdomen pelvis without contrast shows a 2.3 cm exophytic high density lesion arising from the midpole of the right kidney most consistent with a hemorrhagic cyst. The appendix is visualized and there is no evidence of appendicitis. The pancreas is normal anatomically on this CAT scan. No other acute intra-abdominal or intrapelvic findings are noted 11/06/21 19:07 Medical decision making: This patient states that he is feeling much better. In review of his past white blood cell count, he chronically has elevated leukocytosis. He was told to follow-up with his primary care physician for this. He has a mildly elevated amylase and lipase in his pain location and type could be related to mild pancreatitis. He was given the option to be admitted or transferred to facility. At this time, he wants to try to treat this as an outpatient. He was given instructions to return to the emergency department if symptoms worsen. Counseled pt/family regarding: lab results, diagnosis, need for follow-up, rad results - Departure Departure Disposition: Home Clinical Impression: Acute pancreatitis, Leukocytosis Condition: Stable Critical Care Time: No Referrals: MORENO MARTINEZ CLINICAL ADMISSIONS MANAGER [Primary Care Provider] - Follow up/PCP as directed Additional Instructions: Drink plenty of fluids. Avoid fatty greasy spicy foods. Follow-up with your primary care doctor on 11/07/2021 by phone to make a follow-up appointment. Prescriptions: Hydrocodone/APAP 5/325 [[place] 5/325 mg] 1 each PO Q8H PRN PRN #6 tablet MDD 3 PRN Reason: Pain
[2021-11-06] MEDS ORDERED: TORAdol 30 mg Injection IV ONE (16:41)
[2021-11-06] MEDS ORDERED: Zofran 4 MG/2 ML VIAL IV ONE (16:41)
[2021-11-06] MEDS ORDERED: Sodium Chloride 0.9% 1000 ML 1,000 ML IV STA (16:41)
[2021-11-06] MEDS ORDERED: TORAdol 30 mg Injection ONE (16:53)
[2021-11-06] MEDS ORDERED: Sodium Chloride 0.9% 1000 ML 1,000 ML ONE (16:53)
[2021-11-06] MEDS ORDERED: Zofran 4 MG/2 ML VIAL ONE (16:53)
[2021-11-06 17:14] LABS: Absolute Neutrophil Ct (ANC) 11.13 (1.4-6.9); BASOPHIL % 0.6 % (0.0-0.4); Basophil (Absolute #) 0.09 (0-0.4); Eosinophil % 2.2 % (0.00-5.0); Eosinophil (Absolute #) 0.36 (0-0.5); Hematocrit 49.6 % (42-50); Hemoglobin 16.6 gm/dl (12.5-18.0); Lymphocyte (Absolute #) 3.83 (1.0-4.6); Lymphocytes % 23.5 % (24.0-44.0); Mean Cell Volume 93.1 fl (78-100); Mean Corpuscular Hemoglobin 31.1 pg (26-32); Mean Corpuscular Hgb Concent. 33.5 g/dl (32-36); Mean Platelet Volume 10.5 fl (7.5-11.0); Monocytes % 5.5 % (0.0-12.0); Neutrophil % 68.2 % (36.0-66.0); Platelet Count 327 K/mm3 (150-450); Red Blood Count 5.33 M/mm3 (4.1-5.6); Red Cell Distribution Width 14.7 % (11.5-14.0); White Blood Count 16.3 K/mm3 (4.0-10.5)
[2021-11-06] MEDS ORDERED: Hydromorphone 1 mg/ml Injection IV ONE (17:29)
[2021-11-06 17:30] LABS: ALKALINE PHOSPHATASE 141 U/L (38-126); AMYLASE 175 U/L (30-110); ANION GAP 13.6 MEQ/L (5-15); BLOOD UREA NITROGEN 9 mg/dL (9-20); CHLORIDE 106 mmol/L (98-107); Calcium 8.9 mg/dL (8.4-10.2); Carbon Dioxide 26 mmol/L (22-30); Creatinine 1 0.82 mg/dL (0.66-1.25); EST GLOMERULAR FILTRATION RATE > 60.0 ML/MIN; Glucose 162 mg/dL (74-106); LIPASE 486 U/L (23-300); SGOT/AST 30 U/L (17-59); SGPT/ALT 40 U/L (0-50); SODIUM 141 mmol/L (137-145); Total Protein 6.8 g/dL (6.3-8.2)
[2021-11-06] MEDS ORDERED: Hydromorphone 1 mg/ml Injection ONE (17:30)
[2021-11-06 17:59] LABS: Appearance CLEAR (CLEAR); Bacteria RARE /HPF (NEGATIVE); Bilirubin NEGATIVE (NEGATIVE); Blood NEGATIVE Ery/ul (0-5); Glucose NEGATIVE (NEGATIVE); Ketones NEGATIVE (NEGATIVE); Leukocyte Esterase NEGATIVE (NEGATIVE); Mucus SLIGHT /HPF (NEGATIVE); Nitrite NEGATIVE (NEGATIVE); Protein,Urine Dip NEGATIVE (Negative); RBC 0-2 /HPF (0-2); Specific Gravity 1.019 (1.005-1.025); Urobilinogen 4 mg/dL (0-1); WBC 0-2 /HPF (0-5)
[2021-11-06 18:09] LABS: Amphetamine,Urine NEGATIVE (NEGATIVE); Barbiturate,Urine NEGATIVE (NEGATIVE); Benzodiazepine,Urine NEGATIVE (NEGATIVE); Cocaine,Urine NEGATIVE (NEGATIVE); Methadone,Urine NEGATIVE (NEGATIVE); Opiate,Urine NEGATIVE (NEGATIVE); PCP,Urine NEGATIVE (NEGATIVE); THC,Urine NEGATIVE (NEGATIVE)
[2021-11-06] MEDS ORDERED: NORCO 5/325 MG PO ONE (19:11)
[2021-11-06] MEDS ORDERED: NORCO 5/325 MG ONE (19:18)
--- NOTE | 2021-11-06 19:20 | XRAY ---
Indication: Left flank pain. Multiple contiguous axial images obtained through the abdomen and pelvis without contrast. Comparison: April 13, 2020. Lung bases remain clear. Heart not enlarged. Stomach is distended with food/fluid. Noncontrasted stomach and bowel loops nonobstructed with normal appendix. Again mild scattered colonic diverticulosis without diverticulitis. No free fluid/air. Gallbladder contracted without gallstones. Again fatty hepatomegaly measuring 19.5 cm. Right mid kidney demonstrates stable 2.1 cm exophytic dense mass. Remaining liver, gallbladder, pancreas, spleen, adrenal glands, kidneys, ureters, and bladder are unremarkable for noncontrast exam. Again minimal aortoiliac calcifications without AAA. Osseous structures intact. Impression: 1. Again colonic diverticulosis, fatty hepatomegaly, and stable small right renal exophytic solid mass. 2. Remaining CT abdomen/pelvis without contrast exam is negative. Comment: Preliminary interpretation made by [facility]. No critical discrepancy.
[2021-11-06 19:24] VITALS: BP 140/80; PULSE 59; O2SAT 97
== END 2021-11-06 19:34 | disposition home or self-care (01) ==
LOC: ED 16:14
DX: K85.90 Acute pancreatitis without necrosis or infection, unspecified (principal); D72.829 Elevated white blood cell count, unspecified; I10 Essential (primary) hypertension; E78.5 Hyperlipidemia, unspecified; E11.9 Type 2 diabetes mellitus without complications; Z72.0 Tobacco use; Z79.891 Long term (current) use of opiate analgesic; Z79.899 Other long term (current) drug therapy
CPT/HCPCS: 36415; 74176; 80053; 80307; 81001; 82150; 83605; 83690; 85025; 96374; 96375; 99284; J1170; J1885; J2405; A9270-GY